=== PATIENT | female | born 1990 | race Caucasian/White ===

== ENCOUNTER → 2016-09-23 | Outpatient (CLI) | payer BC, OTHER ==
[~2016-09-23] MED LIST: META1TAB22 PO; ONDA4TAB7 SL; TAPE50TA PO
[2016-09-23 17:29] LABS: BASO % 0.3 %; BASO ABS # 0.03 K/uL (0-0.2); COMPLETE YES; EOS % 2.2 %; HEMATOCRIT 40.1 % (37-47); IG% 0.2 %; LYMPH % 33.9 %; LYMPH ABS # 3.44 K/uL (1.2-3.4); MEAN CELL VOLUME 85.9 fL (80-100); MEAN CORPUSCULAR HEMOGLOBIN 29.1 pg (25-34); MEAN CORPUSCULAR HGB CONC 33.9 g/dl (32-36); MEAN PLATELET VOLUME 11.3 fL (7.4-10.4); MONO % 5.1 %; NEUT % 58.3 %; PLATELET COUNT 337 K/uL (130-400); RED BLOOD COUNT 4.67 M/uL (4.2-5.4); WHITE BLOOD COUNT 10.15 K/uL (4.8-10.8)
[2016-09-23 17:57] LABS: ALT/SGPT 81 U/L (12-78); AST/SGOT 48 U/L (15-37); BLOOD UREA NITROGEN 9 mg/dl (7-18); CALCIUM 9.9 mg/dl (8.5-10.1); CARBON DIOXIDE 23 mmol/L (21-32); CHLORIDE 107 mmol/L (98-107); CREATININE 0.67 mg/dl (0.60-1.20); GLUCOSE 94 mg/dl (70-99); POTASSIUM 4.4 mmol/L (3.5-5.1); SODIUM 140 mmol/L (136-145)
[2016-09-23 18:07] LABS: ALB/GLOB RATIO 1.2 (0.9-2); ALKALINE PHOSPHATASE 77 U/L (45-117); THYROID STIMULATING HORMONE 0.789 uIu/ml (0.300-4.500)
== END | disposition home or self-care (01) ==
LOC: C.LABBFT 14:14
PROVIDERS: ATTEND Internal Medicine
DX: R60.9 Edema, unspecified (principal); M54.5 Low back pain

== ENCOUNTER → 2017-01-13 | Outpatient (CLI) | payer OTHER ==
[2017-01-13 16:33] LABS: MEAN CELL VOLUME 86.9 fL (80-100); MEAN CORPUSCULAR HEMOGLOBIN 29.4 pg (25-34); MEAN CORPUSCULAR HGB CONC 33.8 g/dl (32-36); MEAN PLATELET VOLUME 10.8 fL (7.4-10.4); PLATELET COUNT 281 K/uL (130-400); RED BLOOD COUNT 4.49 M/uL (4.2-5.4); WHITE BLOOD COUNT 9.69 K/uL (4.8-10.8)
[2017-01-13 17:02] LABS: ALT/SGPT 24 U/L (12-78); AST/SGOT 17 U/L (15-37); BLOOD UREA NITROGEN 9 mg/dl (7-18); BUN/CREATININE RATIO 15.2 (10-20); CARBON DIOXIDE 25 mmol/L (21-32); CHLORIDE 108 mmol/L (98-107); GLUCOSE 121 mg/dl (70-99); POTASSIUM 3.4 mmol/L (3.5-5.1); SODIUM 139 mmol/L (136-145)
[2017-01-13 17:05] LABS: ALB/GLOB RATIO 1.3 (0.9-2); ALKALINE PHOSPHATASE 89 U/L (45-117)
== END | disposition home or self-care (01) ==
LOC: C.LAB 15:19
PROVIDERS: ATTEND Family Medicine
DX: Z33.1 Pregnant state, incidental (principal)

== ENCOUNTER → 2017-02-03 | Outpatient (CLI) | payer OTHER ==
[2017-02-03 12:50] LABS: BASO % 0.4 %; BASO ABS # 0.04 K/uL (0-0.2); COMPLETE YES; EOS % 2.1 %; HEMATOCRIT 39.3 % (37-47); IG% 0.2 %; LYMPH % 43.7 %; LYMPH ABS # 4.75 K/uL (1.2-3.4); MEAN CELL VOLUME 86.9 fL (80-100); MEAN CORPUSCULAR HEMOGLOBIN 28.3 pg (25-34); MEAN CORPUSCULAR HGB CONC 32.6 g/dl (32-36); MEAN PLATELET VOLUME 10.6 fL (7.4-10.4); MONO % 7.1 %; NEUT % 46.5 %; PLATELET COUNT 287 K/uL (130-400); RED BLOOD COUNT 4.52 M/uL (4.2-5.4); WHITE BLOOD COUNT 10.88 K/uL (4.8-10.8)
== END ==
LOC: C.LAB1850 10:31
PROVIDERS: ATTEND Obstetrics & Gynecology
DX: Z34.01 Encounter for supervision of normal first pregnancy, first trimester (principal)

== ENCOUNTER → 2017-02-03 | Outpatient (CLI) | payer OTHER ==
[2017-02-03 14:48] LABS: URINE APPEARANCE CLEAR (CLEAR); URINE BILIRUBIN NEG (NEG); URINE COLOR DK YELLOW; URINE NITRITE NEG (NEG); URINE PH 6.5 (4.5-7.5); URINE SPECIFIC GRAVITY 1.024 (1.000-1.030); UROBILINOGEN NEG (NEG)
[2017-02-03 14:58] LABS: MANUAL MICROSCOPIC REQUIRED? NO; REVIEW REQ? NO
[2017-02-03 15:12] LABS: BENZODIAZEPINE, URINE NEG (NEG); COCAINE,URINE NEG (NEG); PHENCYCLIDINE, URINE NEG (NEG)
[2017-02-06 08:47] LABS: CHLAMYDIA TRACH RNA*** NOT DETECTED (NOT DETECTED); GC (NEIS GONORRHOEAE)RNA** NOT DETECTED (NOT DETECTED)
== END ==
LOC: C.LABSPEC 13:59
PROVIDERS: ATTEND Obstetrics & Gynecology
DX: Z34.01 Encounter for supervision of normal first pregnancy, first trimester (principal); O99.321 Drug use complicating pregnancy, first trimester; Z3A.00 Weeks of gestation of pregnancy not specified

== ENCOUNTER → 2017-04-07 | Outpatient (CLI) | payer OTHER ==
[2017-04-07 13:54] LABS: GTGD 50 Grams
== END | disposition home or self-care (01) ==
LOC: C.LAB1850 11:42
PROVIDERS: ATTEND Obstetrics & Gynecology
DX: Z34.01 Encounter for supervision of normal first pregnancy, first trimester (principal)

== ENCOUNTER → 2017-06-03 | Outpatient (CLI) | payer OTHER | END | disposition home or self-care (01) | LOC: C.CPL 14:47 | PROVIDERS: ATTEND Obstetrics & Gynecology | DX: Z36.2 Encounter for other antenatal screening follow-up (principal) ==

== ENCOUNTER → 2017-06-30 | Outpatient (CLI) | payer OTHER ==
[2017-06-30 22:39] LABS: GTGD 50 Grams
== END | disposition home or self-care (01) ==
LOC: C.LAB1850 16:22
PROVIDERS: ATTEND Obstetrics & Gynecology
DX: Z34.03 Encounter for supervision of normal first pregnancy, third trimester (principal)

== ENCOUNTER 2017-08-12 13:36 | Emergency (ER) | payer OTHER ==
[2017-08-12] MEDS ORDERED: METH500T37 PO ×2 (15:02)
[2017-08-12] MEDS ORDERED: GABA1CAP5 PO ×2 (15:02)
[2017-08-12] MEDS ORDERED: BUPR1SUB23 PO ×2 (15:02)
[2017-08-12] MEDS ORDERED: QUET150T PO ×2 (15:02)
== END 2017-08-12 14:19 | disposition home or self-care (01) ==
LOC: C.EDB 13:39

== ENCOUNTER 2017-08-12 13:52 | Inpatient (IN) | payer OTHER ==
[~2017-08-12] VITALS: Ht 167.6 cm; Wt 81.7 kg
[2017-08-12] MEDS ORDERED: LACTATED RINGER'S 1000ML 500 ML IV ONE (14:30)
[2017-08-12] MEDS ORDERED: PROMETHAZINE HCL INJ 25 MG in SODIUM CHLORIDE 0.9% 50ML 50 ML IV PRN (14:30)
[2017-08-12] MEDS ORDERED: PROMETHAZINE HCL INJ 12.5 MG in SODIUM CHLORIDE 0.9% 50ML 50 ML IV PRN (14:30)
[2017-08-12] MEDS ORDERED: LACTATED RINGER'S 1000ML 1,000 ML IV SCH ×2 (14:45→17:01)
[2017-08-12] MEDS ORDERED: METH500T37 PO ×2 (15:02)
[2017-08-12] MEDS ORDERED: QUET150T PO ×2 (15:02)
[2017-08-12] MEDS ORDERED: GABA1CAP5 PO ×2 (15:02)
[2017-08-12] MEDS ORDERED: BUPR1SUB23 PO ×2 (15:02)
[2017-08-12 15:03] VITALS: Ht 167.6 cm; Wt 81.7 kg
[2017-08-12] MEDS ORDERED: TERBUTALINE SULFATE 1 MG/ML VIAL SQ ONE (15:30)
[2017-08-12] MEDS ORDERED: LACTATED RINGER'S 1000ML 1,000 ML IV PRN (17:01)
[2017-08-12] MEDS ORDERED: CITRIC ACID/SODIUM CITRATE 15 ML UDC PO ONE (17:15)
[2017-08-12] MEDS ORDERED: MORPHINE SULFATE PF 2MG/2ML SYR ONE (17:29)
[2017-08-12] MEDS ORDERED: CEFAZOLIN IV 2,000 MG in DEXTROSE 5% 50ML 50 ML IV SCH (17:30)
[2017-08-12] MEDS ORDERED: LIDOCAINE HCL 2% JELLY 30 ML TUBE EXT ONE (17:42)
[2017-08-12 17:55] LABS: HEMATOCRIT 33.2 % (37-47); MEAN CELL VOLUME 88.1 fL (80-100); MEAN CORPUSCULAR HEMOGLOBIN 28.4 pg (25-34); MEAN CORPUSCULAR HGB CONC 32.2 g/dl (32-36); MEAN PLATELET VOLUME 10.6 fL (7.4-10.4); PLATELET COUNT 322 K/uL (130-400); RED BLOOD COUNT 3.77 M/uL (4.2-5.4); WHITE BLOOD COUNT 17.71 K/uL (4.8-10.8)
--- NOTE | 2017-08-12 18:34 | HISTORY & PHYSICAL EXAMINATION ---
DATE OF ADMISSION: 08/12/2017 PRINCIPAL DIAGNOSES: Intrauterine at 34 and 4/7 weeks, prolonged deceleration, history of prior drug abuse and suspected placental abruption. PROCEDURE: Primary low transverse cervical section. HISTORY OF PRESENT ILLNESS: The patient is a 26-year-old G1, P0 white female, EDC of 09/19/2017 who had presented to labor and delivery with increasing lower abdominal and back pain. The pain is described as shooting, it is across her entire lower back and does radiate around to the front of her abdomen. She has also been vomiting for the last 12 hours. She denies any vaginal bleeding, change in discharge. The baby has been moving. She has had no diarrhea, only the vomiting and lack of appetite. She typically takes Seroquel and gabapentin but she has not taken that for 2 days because she has not felt well. She denies any fever or chills. On exam, she has lower back pain that is diffuse. No CVA tenderness. Palpation of the abdomen does not reproduce the pain. There is no hepatosplenomegaly or masses palpable. She does have a wide keloid scar midline on her abdomen of her prior appendectomy. Pelvic exam, cervix was closed and long and presenting part is high. During the evaluation for this abdominal pain, the had a 18 minute deceleration to 80-90 beats per minute with slow recovery to baseline. The patient continues to complain of continuous lower back pain. She does deny any recent use of cocaine or other illicit drugs. Urine drug screen will be pending. Because of the prolonged deceleration, it was not felt prudent to transfer her for delivery and because of the deceleration it was felt prudent to proceed with low transverse cervical section. The patient understands why we are doing this and her questions have been answered. PAST MEDICAL HISTORY: Significant for history of IV drug use. The patient denies any recent heroin and cocaine use during that ; however, she has been using marijuana for control of nausea. Otherwise, the patient has no other medical issues. ALLERGIES: OXYCODONE BECAUSE IT CAUSES A RASH. MEDICATIONS: Gabapentin 400 mg p.o. t.i.d., Seroquel 150 mg p.o. daily, vitamin, Suboxone 8 mg daily divided into 4 doses of 2 mg each. OBSTETRICAL AND GYNECOLOGICAL HISTORY: Periods are regular. No history of PID, VD or herpes. Pap smears have been normal. PAST SURGICAL HISTORY: Appendectomy at age 9 with a ruptured appendix, requiring surgery and a week stay in the hospital. She had a wisdom teeth removed, right hand surgery x3 and a left knee surgery. HISTORY: Blood type is A positive. Antibody screen is negative. Rubella is immune. RPR is nonreactive. Hepatitis is negative. Hepatitis B is negative. HIV is negative. GC and chlamydia are negative. Cystic fibrosis was declined. Hemoglobin at 28 weeks is 10.9, hematocrit 33. GBS has not been done yet, however, will be done prior to the section. SOCIAL HISTORY: She does smoke approximately a pack a day, does not do alcohol, has admitted to marijuana use during the for nausea. Denies any recent IV drug or cocaine use during the . PHYSICAL EXAMINATION: VITAL SIGNS: She is afebrile. Vital signs are stable. LUNGS: Clear to auscultation. HEART: Regular rate and rhythm. No murmurs or gallops. ABDOMEN: Gravid, no hepatosplenomegaly or masses are palpable. She has a well-healed keloid scar on her lower abdomen. PELVIC: Noted as in the HPI. vertex presentation by ultrasound EXTREMITIES: Without cyanosis or edema. She has multiple scarring on both of her arms and on her feet. No calf tenderness is present. ASSESSMENT: A 26-year-old G1, P0 at 34 and 4 weeks with prolonged deceleration with slow recovery, history of IV drug abuse in the past, now with severe lower back pain with placental abruption is suspected. The patient understands that the baby will be transferred to [facility] upon delivery. Reviewed the procedure and her questions have been answered as well as the family's questions have been answered. Please see the orders for further directions. MELISSA
[2017-08-12 19:51] LABS: URINE APPEARANCE CLEAR (CLEAR); URINE COLOR DK YELLOW; URINE EPITHELIAL CELL AUTO >30 /lpf (0-5); URINE NITRITE NEG (NEG); URINE SPECIFIC GRAVITY 1.021 (1.000-1.030); UROBILINOGEN NEG (NEG)
[2017-08-12 20:01] LABS: MANUAL MICROSCOPIC REQUIRED? NO; REVIEW REQ? YES; URINE BILIRUBIN NEG (NEG)
[2017-08-12 20:03] LABS: URINE MUCUS PRESENT (NONE PRSENT)
[2017-08-12] MEDS ORDERED: HYDROmorphone INJ 2 MG/ML SYR/VIAL ONE ×2 (20:03→20:35)
[2017-08-12 20:05] LABS: ZZUR CULT IF INDIC CLEAN CATCH YES
[2017-08-12] MEDS ORDERED: OXYTOCIN INJ 10 UNITS/ML VIAL ONE (20:24)
[2017-08-12] MEDS ORDERED: PHENYLEPHRINE 100MCG/ML 5ML SYR ONE (20:25)
[2017-08-12] MEDS ORDERED: ATROPINE SULFATE 0.1 MG/ML 5ML SYR IV PRN (20:30)
[2017-08-12] MEDS ORDERED: KETOROLAC TROMETHAMINE 30 MG/ML VIAL IV. PRN (20:30)
[2017-08-12] MEDS ORDERED: FENTANYL CITRATE INJ 50 MCG/1 ML 2 ML VIAL IV PRN (20:30)
[2017-08-12] MEDS ORDERED: ONDANSETRON INJ 2 MG/ML 2 ML VIAL IV PRN (20:30)
[2017-08-12] MEDS ORDERED: DEXAMETHASONE SOD INJ 4 MG/ML VIAL IV PRN (20:30)
[2017-08-12] MEDS ORDERED: LABETALOL HCL IV 5 MG/ML 20ML IV PRN (20:30)
[2017-08-12] MEDS ORDERED: EpHEDrine SULFATE INJ 50 MG/ML AMP IV PRN (20:30)
[2017-08-12] MEDS ORDERED: MoRPHine SULFATE 10 MG/ML CARP/VIAL IV PRN (20:30)
[2017-08-12] MEDS ORDERED: MEPERIDINE HCL 25 MG/ML CARP IV PRN (20:30)
[2017-08-12] MEDS ORDERED: FENTANYL CITRATE INJ 50 MCG/1 ML 2 ML VIAL ONE (20:35)
[2017-08-12 20:37] LABS: BENZODIAZEPINE, URINE NEG (NEG); COCAINE,URINE NEG (NEG); PHENCYCLIDINE, URINE NEG (NEG)
[2017-08-12] MEDS ORDERED: DC PCA PRN (20:45)
[2017-08-12] MEDS ORDERED: MAGNESIUM HYDROXIDE SUSP 30 ML UDC PO PRN (20:45)
[2017-08-12] MEDS ORDERED: SENNA 8.6 MG TAB PO PRN (20:45)
[2017-08-12] MEDS: HYDROmorphone INJ 1 MG/ML SYR IV PRN ×2 (21:28→23:53)
[2017-08-12] MEDS ORDERED: ACETAMINOPHEN IV 100 ML IV PRN (21:45)
--- NOTE | 2017-08-12 22:24 | OPERATIVE REPORT ---
DATE OF OPERATION: 08/12/2017 SURGEON: Dr. Alissa Carrasco. STAMPING OPERATOR: Dr. Rama Alvares. PREOPERATIVE DIAGNOSIS: Nonreassuring heart rate pattern at 34-4/7 weeks with unfavorable cervix. POSTOPERATIVE DIAGNOSES: Same plus suspected placental abruption. PROCEDURE: Primary low transverse cervical section. ESTIMATED BLOOD LOSS: 600 mL ANESTHESIA: Spinal. HISTORY: The patient is a 26-year-old 1, para 0 white female, EDC of 09/19/2017, who had presented because of persistent low back pain which began the day prior to admission with nausea and vomiting. The back pain became progressively worse and was radiating around to the low groin areas. During her monitoring, there was an 18-minute deceleration to 80 beats per minute with a short rise to baseline and then dropped again to 80s and 90s for another several minutes. After repositioning and subcu terbutaline because the patient was having contractions, the heart rate then stabilized. The patient then stopped pasha. She was difficult to get IV access because of dehydration and prior IV drug use. heart rate remained reassuring at this point with only occasional short decelerations to 90 beats per minute. Because of the persistent back pain, contractions and nonreassuring heart rate pattern, placental abruption was suspected. After discussion with the patient and her family, it was felt prudent to proceed with low transverse cervical section and they were agreeable to this plan. All their questions were answered. GROSS FINDINGS: Uterus was gravid and dextrorotated. There was significant venous dilation in the lower uterine segment which was not well developed. Bilateral ovaries and fallopian tubes were grossly normal. Placenta appeared to be almost completely abrupt at the time of the section. PROCEDURE IN DETAIL: After the patient received adequate subarachnoid block, she was prepped and draped in the usual sterile fashion. She had a prior scar from an appendectomy and it was midline. The scar was removed and the fascia was entered with a scalpel. The peritoneum was then entered with a scalpel and the incision was extended with the scalpel and Metzenbaum scissors. The bladder was then taken down off the anterior surface of the uterus and placed behind the bladder blade. The low uterine segment was entered with the scalpel and extended transversally. The infant was delivered from the vertex presentation with moderate fundal pressure and vacuum assistance as the was also trying to present with a hand. After the vacuum was applied and gentle pressure, tension was applied and the was delivered. There was a loose nuchal cord as well as an arm cord. The rest of the infant delivered easily. Cord was then clamped and cut. Cord gases were obtained and the was handed off to Dr. Holm who was in attendance as air brake worker. The placenta was then removed from the uterus, already detached. The uterine cavity was explored and found to be free of any placental tissue or membranes. The uterus was then exteriorized and covered with a clean lap sponge. The uterus was closed in 2 layers with 0 Monocryl in a running locking imbricating fashion. Hemostasis was noted to be excellent. The posterior cul-de-sac was irrigated with normal saline. The incision was examined once more and continued to have excellent hemostasis. The gutters were explored and were free of any clot or tissue. Anterior cul-de-sac was also irrigated with normal saline. The uterus was placed gently back into the abdominal cavity. A Fish was used to retract the bowel away from the fascial incision as it was being closed. 0 PDS was used to close the vertical incision in a running fashion, taking care not to incorporate the bowel into the incision. Prior to closing the incision completely, the posterior side of the fascia was explored and found to have no bowel entrapped. The adipose layer was brought together with 2 layers of 3-0 plain catgut. The skin edges were closed with faith. Urine was clear at the end of the case but concentrated. Mother was stable at the end of delivery. The was being further evaluated at the time of the section. I attest to the content of the Intraoperative Record and any orders documented therein. Any exception s are noted below.
[2017-08-12] MEDS: GABAPENTIN 400 MG CAP PO SCH (23:27)
[2017-08-12] MEDS: QUETIAPINE FUMARATE 50 MG TABCR PO SCH (23:28)
[2017-08-13] VITALS (19 sets, daily range): BP systolic 98–115; BP diastolic 53–68; PULSE 18–79; TEMP 36.7–37.5; O2SAT 91–96
[2017-08-13] MEDS ORDERED: BUPRENORPHINE/NALOXONE 8/2 MG TAB PO SCH ×2 (00:15→08:00)
--- NOTE | 2017-08-13 00:53 | Anesthesiology Progress Note ---
Anesthesia Post Op Note Date & Time Aug 13, 2017 at 00:53 Vital Signs Pain Intensity: 10.0 Notes Mental Status: alert / awake / arousable, participated in evaluation Pt Amnestic to Procedure: Yes Nausea / Vomiting: adequately controlled Pain: adequately controlled Airway Patency, RR, SpO2: stable & adequate BP & HR: stable & adequate Hydration State: stable & adequate Neuraxial Anesthesia: was administered, sensory block is resolving Anesthetic Complications: no major complications apparent
--- NOTE | 2017-08-13 01:03 | [facility] Operative Report ---
Operative Report Operative Date Aug 13, 2017. Pre-Operative Diagnosis non Reassuring FHR Pattern, 34 4/7 weeks gestation, unfavoriable cervix Post-Operative Diagnosis non Reassuring FHR Pattern, 34 4/7 weeks gestation, unfavoriable cervix Procedure(s) Performed Primary low transverse c/section Surgeon DR. [facility] Nurse Surgeon(s) DR. MAN Estimated Blood Loss 600 ML Findings gravid uterus normal ovaries & tubes. the placenta noted to be partially abrupted after delivery of the baby. Specimens A: LIVE MALE CHILD B: ARTERIAL AND VENOUS BLOOD GASES C: CORD BLOOD D:PLACENTA Drains Meier to straight drainage Anesthesia SAB Complication(s) None Disposition L&D I attest to the content of the Intraoperative Record and any orders documented therein. Any exceptions are noted below.
[2017-08-13] MEDS ORDERED: NALOXONE HCL INJ 1 MG in SODIUM CHLORIDE 0.9% 1000ML 1,000 ML IV PRN (02:10)
[2017-08-13] MEDS ORDERED: LACTATED RINGER'S 1000ML 500 ML IV PRN (02:10)
[2017-08-13] MEDS ORDERED: SODIUM CHLORIDE 0.9% 1000ML 1,000 ML IV PRN (02:10)
[2017-08-13] MEDS ORDERED: NALOXONE HCL INJ 0.08 MG in SYRINGE 1.8 ML IV PRN (02:10)
[2017-08-13] MEDS ORDERED: NALBUPHINE HCL INJ 10 MG/ML AMP IV PRN (02:15)
[2017-08-13] MEDS ORDERED: DiphenhydrAMINE HCL 50 MG/ML VIAL IV PRN ×3 (02:15→13:30)
[2017-08-13] MEDS ORDERED: ONDANSETRON INJ 2 MG/ML 2 ML VIAL IV PRN ×2 (02:15→13:30)
[2017-08-13] MEDS ORDERED: PROMETHAZINE HCL INJ 25 MG in SODIUM CHLORIDE 0.9% 50ML 50 ML IV PRN ×2 (02:15→13:30)
[2017-08-13] MEDS ORDERED: MoRPHine SULFATE PF 1 MG/ML 10 ML AMP/VIAL EPI PRN (02:15)
[2017-08-13] MEDS ORDERED: EpHEDrine SULFATE INJ 50 MG/ML AMP IV PRN (02:15)
[2017-08-13] MEDS ORDERED: MoRPHine SULFATE 2 MG/ML CARP IV PRN (02:15)
[2017-08-13] MEDS ORDERED: NALOXONE HCL 0.4 MG/1 ML VIAL/CARP IV PRN (02:15)
[2017-08-13] MEDS ORDERED: NO NARCOTICS OR SEDATIVES SCH (02:15)
[2017-08-13] MEDS ORDERED: METOCLOPRAMIDE HCL INJ 20 MG in SODIUM CHLORIDE 0.9% 50ML 50 ML IV PRN (02:15)
[2017-08-13] MEDS: KETOROLAC TROMETHAMINE 30 MG/ML VIAL IV. PRN ×2 (04:48→12:34)
[2017-08-13 06:11] LABS: HEMATOCRIT 25.3 % (37-47)
[2017-08-13] MEDS: OXYTOCIN INJ 20 UNITS in LACTATED RINGER'S 1000ML 1,000 ML IV SCH ×2 (06:33→14:31)
--- NOTE | 2017-08-13 07:19 | Progress Note ---
Subjective Aug 13, 2017. Subjective conversation w/ patient, physical exam Ambulation: ambulating normally Voiding: gomez catheter in place Passing Gas: Yes Diet Tolerance: Clear Liquids Lochia: Small Feeding Type: Bottle Feeding Comment: back pain better, pain meds working. Review of Systems Constitutional: No fever, No chills, No sweats, No weight loss, No weakness, No fatigue, No problem reported Breast: No see HPI, No breast lump, No change in shape, No nipple discharge, No breast pain, No problem reported Abdomen: No pain, No nausea, No vomiting, No diarrhea, No constipation, No GI bleeding, No problem reported Female : No see HPI, No dysuria, No urinary frequency, No hematuria, No incontinence, No abnormal vaginal bleeding, No vaginal discharge, No problem reported Objective Vital Signs Date Time Temp Pulse Resp B/P (MAP) Pulse Ox O2 Delivery O2 Flow Rate FiO2 08/13/17 06:22 16 92 08/13/17 05:30 16 93 08/13/17 04:30 16 96 08/13/17 04:30 37.5 67 16 101/62 (75) 96 Room Air 08/13/17 03:30 16 93 08/13/17 02:30 16 91 08/13/17 02:30 37.3 69 16 115/67 08/13/17 01:58 95 Room Air 08/13/17 01:30 37.1 74 16 113/53 (73) 92 Room Air 08/13/17 01:30 16 92 08/13/17 00:35 18 95 08/13/17 00:35 95 Room Air 08/13/17 00:35 37.4 67 18 113/64 Physical Exam General Appearance: WELL-APPEARING, NO APPARENT DISTRESS Abdomen: soft Fundus: Firm, Non-Tender, Relation to Umbilicus (1 below U) Incision Description: Clean, Dry & Intact Extremities: no calf tenderness Laboratory Results Last 24 Hours Test 08/12/17 17:38 08/12/17 19:30 08/13/17 05:53 White Blood Count 17.71 K/uL Red Blood Count 3.77 M/uL Hemoglobin 10.7 g/dL 8.4 g/dL Hematocrit 33.2 % 25.3 % Mean Corpuscular Volume 88.1 fL Mean Corpuscular Hemoglobin 28.4 pg Mean Corpuscular Hemoglobin Concent 32.2 g/dl RDW Standard Deviation 43.7 fL RDW Coefficient of Variation 13.6 % Platelet Count 322 K/uL Mean Platelet Volume 10.6 fL Urine Color DK YELLOW Urine Appearance CLEAR Urine pH 6.0 Urine Specific [place] 1.021 Urine Protein TRACE Urine Glucose (UA) NEG Urine Ketones 4+ Urine Occult Blood NEG Urine Nitrite NEG Urine Bilirubin NEG Urine Urobilinogen NEG Urine Leukocyte Esterase TRACE Urine WBC (Auto) 1-5 /hpf Urine RBC (Auto) 0-4 /hpf Urine Hyaline Casts (Auto) 0 /lpf Urine Epithelial Cells (Auto) >30 /lpf Urine Bacteria (Auto) 1+ Urine Renal Epithelial Cells /lpf Urine Pathogenic Casts /lpf Urine Mucus PRESENT Urine Opiates Screen NEG Urine Methadone, Qualitative NEG Urine Barbiturates NEG Urine Phencyclidine (PCP) Level NEG Ur Amphetamine/Methamphetamine NEG MDMA (Ecstasy) Screen NEG Urine Benzodiazepines Screen NEG Urine Cocaine Metabolite NEG Urine Marijuana (THC) POS Assessment and Plan Day#: 1 Continue Routine Care: stable course pain well controlled with current regimen continue current care plan.
[2017-08-13] MEDS ORDERED: QUETIAPINE FUMARATE 50 MG TABCR PO SCH (08:00)
[2017-08-13] MEDS ORDERED: GABAPENTIN 400 MG CAP PO SCH (08:00)
[2017-08-13] MEDS: SIMETHICONE 80 MG CHEW PO SCH ×4 (08:00→20:55)
[2017-08-13] MEDS: BUPRENORPHINE/NALOXONE 8/2 MG TAB PO SCH ×2 (08:07→20:53)
[2017-08-13] MEDS: QUETIAPINE FUMARATE 50 MG TABCR PO SCH (08:07)
[2017-08-13] MEDS: PRENATAL VITAMIN TAB PO SCH (08:08)
[2017-08-13] MEDS: FERROUS SULFATE 325 MG TAB PO SCH (08:08)
[2017-08-13] MEDS: GABAPENTIN 400 MG CAP PO SCH ×3 (08:10→20:54)
[2017-08-13] MEDS: DOCUSATE SODIUM 100 MG CAP PO SCH ×2 (08:11→20:54)
[2017-08-13] MEDS: MEPERIDINE HCL 25 MG/ML CARP IV PRN ×2 (08:20→08:40)
[2017-08-13] MEDS ORDERED: DC INTRASPINAL MORPHINE SCH (13:30)
[2017-08-13] MEDS ORDERED: MEPERIDINE HCL 50 MG/ML CARP IV PRN ×2 (13:30)
[2017-08-13] MEDS ORDERED: KETOROLAC TROMETHAMINE 30 MG/ML VIAL IV. PRN (13:30)
[2017-08-13] MEDS: ACETAMINOPHEN/CODEINE 300/30MG TAB PO PRN ×2 (16:04→20:53)
[2017-08-13] MEDS: IBUPROFEN 600 MG TAB PO PRN ×2 (16:04→20:54)
[2017-08-13] MEDS ORDERED: BISACODYL 5 MG TABEC PO ONE (22:00)
[2017-08-14] MEDS: IBUPROFEN 600 MG TAB PO PRN ×3 (00:14→11:46)
[2017-08-14] MEDS: ACETAMINOPHEN/CODEINE 300/30MG TAB PO PRN ×3 (00:15→11:47)
[2017-08-14 00:20] VITALS: BP 124/80; PULSE 67; TEMP 37; O2SAT 96
[2017-08-14 07:10] VITALS: BP_SYST 103; BP_SYST 122; BP_DIAS 64; BP_DIAS 78; PULSE 69; PULSE 87; TEMP 36.4; TEMP 37; O2SAT 97; O2SAT 98
[2017-08-14 07:15] LABS: BASO % 0.5 %; BASO ABS # 0.05 K/uL (0-0.2); EOS % 2.9 %; HEMATOCRIT 26.6 % (37-47); IG% 0.3 %; LYMPH % 37.3 %; LYMPH ABS # 3.57 K/uL (1.2-3.4); MEAN CORPUSCULAR HEMOGLOBIN 28.4 pg (25-34); MEAN PLATELET VOLUME 10.1 fL (7.4-10.4); PLATELET COUNT 233 K/uL (130-400); RED BLOOD COUNT 2.99 M/uL (4.2-5.4); WHITE BLOOD COUNT 9.57 K/uL (4.8-10.8)
--- NOTE | 2017-08-14 07:18 | Progress Note ---
Subjective Aug 14, 2017. Subjective conversation w/ patient, physical exam Ambulation: ambulating normally Voiding: no voiding problems Passing Gas: Yes Diet Tolerance: Regular Diet Feeding Type: Bottle Feeding Review of Systems Constitutional: No fever, No chills Respiratory: No cough Cardiac: No chest pain Breast: No problem reported Abdomen: No nausea, No vomiting Female : No problem reported Objective Vital Signs Date Time Temp Pulse Resp B/P (MAP) Pulse Ox O2 Delivery O2 Flow Rate FiO2 08/14/17 00:20 37.0 67 18 124/80 08/14/17 00:20 96 Room Air 08/13/17 20:45 36.7 74 16 110/68 08/13/17 20:45 Room Air 08/13/17 16:15 36.9 78 16 108/66 08/13/17 16:15 Room Air 08/13/17 13:00 20 94 08/13/17 12:00 20 92 08/13/17 11:59 37.1 79 16 109/65 08/13/17 11:00 16 92 08/13/17 10:00 18 94 08/13/17 09:00 16 94 08/13/17 08:00 20 94 08/13/17 07:25 37.1 60 16 98/55 (69) 95 Room Air Physical Exam General Appearance: WELL-APPEARING, NO APPARENT DISTRESS Respiratory/Chest: no respiratory distress, no accessory muscle use Cardiovascular: no edema Abdomen: non tender, soft Fundus: Firm Extremities: no calf tenderness Laboratory Results Last 24 Hours Test 08/14/17 06:53 White Blood Count 9.57 K/uL Red Blood Count 2.99 M/uL Hemoglobin 8.5 g/dL Hematocrit 26.6 % Mean Corpuscular Volume 89.0 fL Mean Corpuscular Hemoglobin 28.4 pg Mean Corpuscular Hemoglobin Concent 32.0 g/dl Platelet Count 233 K/uL Mean Platelet Volume 10.1 fL Neutrophils (%) (Auto) 48.0 % Lymphocytes (%) (Auto) 37.3 % Monocytes (%) (Auto) 11.0 % Eosinophils (%) (Auto) 2.9 % Basophils (%) (Auto) 0.5 % Neutrophils # (Auto) 4.59 K/uL Lymphocytes # (Auto) 3.57 K/uL Monocytes # (Auto) 1.05 K/uL Eosinophils # (Auto) 0.28 K/uL Basophils # (Auto) 0.05 K/uL RDW Standard Deviation 45.6 fL RDW Coefficient of Variation 14.1 % Immature Granulocyte % (Auto) 0.3 % Immature Granulocyte # (Auto) 0.03 K/uL Assessment and Plan Post-Op Day#: 2 Continue Routine Care: Desires D/C. Mom ok from medical standpoint. Peds made aware, CYS pending.
--- NOTE | 2017-08-14 07:20 | Discharge Instructions ---
Discharge Instructions Date of Service Aug 14, 2017. Admission Reason for Admission: Vomiting, Back Pain Discharge Discharge Diagnosis / Problem: vaginal delivery Discharge Goals Goal(s): Routine recovery after delivery Activity Recommendations Activity Limitations: per Instructions/Follow-up section . Instructions / Follow-Up Instructions / Follow-Up ACTIVITY RECOMMENDATIONS: * Gradual return to full activity over the next 2-3 weeks. * No lifting - nothing heavier than baby over the next 2-3 weeks. * Do not engage in vigorous exercise, sexual activity or sports until cleared by your physician. * Do not drive or operate any motorized equipment until cleared by your physician. * You may shower/bathe daily. MEDICATIONS: For discomfort or pain, you may use Acetaminophen (Tylenol), Ibuprofen (Advil), or Naproxen (Aleve) following the package directions. For constipation you may use Colace following the package directions. BREAST CARE: If you are not breast feeding: * Wear a supportive bra 24 hours a day for one to two weeks. * Avoid stimulating your breasts and nipples as much as possible during the first few weeks after delivery. * When taking a shower, have the warm water hit your back, not breasts. * When your breasts feel full, apply ice packs. Usually three to four times a day helps ease the discomfort. * Take a mild pain medication (Tylenol / Motrin) when you are uncomfortable. If breast feeding: * Use breast milk to lubricate nipples. Lansinoh cream may be used for sore nipples. You do not need to remove cream prior to breast feeding. If using a different brand of cream, check the label for directions regarding removal of cream prior to nursing. * Wear a supportive bra. * If having problems with breasts or breast feeding, call a review consultant or your health care provider. EPISIOTOMY CARE: After delivery, if you have an episiotomy (stitches), the following steps will ease discomfort and aid healing. * For the first 24 hours after delivery, place ice packs next to your episiotomy to help reduce swelling. * After the first 24 hour-period, sitz baths, either portable or in the tub, are suggested. A shower with a shower arm sprayed over the episiotomy may be comforting. * Pat care should be done after each voiding and bowel movement. Squirt warm water from a plastic bottle over the perineum (region of the body between the anus and urinary opening) and pat dry. * Use Dermoplast to ease discomfort. Shake container. [place] directly over the episiotomy. Place a Tucks on a clean sanitary pad next to your episiotomy. SPECIAL CARE INSTRUCTIONS: When you are discharged from the hospital, it is important for you to follow the instructions listed below: * During the first week at home, you should be able to care for yourself and your baby. In addition, the usual light household activities are encouraged. * Limit your activities to the way you feel. Do not try to clean the house or move furniture. Be sensible. * If you actively engage in sports and have done so up until the time of your delivery, you may resume these activities as soon as you feel able. This may take up to one month or even longer. Use good judgment. * Continue to take your vitamins for at least six weeks after the of your baby. * Your diet need not be limited unless you were on a special diet before your delivery. Breast-feeding mothers need around 2500 calories per day and at least 64-80 ounces of fluid per day (8 to 10 glasses). * You should eat foods from the four major food groups. Crash diets or fad diets are to be avoided. Eating lean meats, fresh fruits and vegetables, low-fat dairy products, high fiber foods and a regular exercise program, will help you get back to your pre- weight without putting your health at risk. * Constipation is sometimes a problem after delivery. Take a mild laxative as needed. If breast feeding, Milk of Magnesia is acceptable to use. You may use a suppository or Fleets enema if no episiotomy. * A daily shower or tub bath is suggested. Be sure to thoroughly and gently dry the perineum. * A bloody vaginal discharge will usually continue until around four weeks post . A small amount of bleeding may continue for as long as six weeks. Vaginal discharge changes from the bright red bleeding after delivery to pink then brownish and finally yellowish-pink before becoming white and disappearing. * Bleeding may increase with activity. Your first period may come in 4-8 weeks. If you are breast feeding, your period may be delayed even longer. * Blue (sex) can begin whenever both you and your partner feel comfortable and do not have any form of genital infection. It is recommended that you wait at least six weeks for internal and external healing to occur. If you have questions, please talk to your health care practitioner. A condom should be used to prevent infection and . * Foreplay, gentle intercourse and lubrication is very important the first several times to prevent pain. A water-based lubricant such as K-Y jelly or Astroglide may be used. * If you have RH negative blood and your baby is RH positive, you will receive RHOGAM by injection prior to discharge. The nurse will give you a card to keep with you that has the date and place that you received RHOGAM after delivery. * During your care, you had a Rubella screen done to check for the presence of rubella antibodies in your blood. If your test was negative, you will receive a Rubella vaccine prior to discharge. This vaccine may cause a fever, soreness at the injection site and flu-like symptoms. If these symptoms persist, notify your health care practitioner. is not advised for one month after a Rubella vaccine. * Verbalizes understanding of car seat law as reviewed with patient nursing. * Car Seat hand-out given and reviewed with patient by nursing. * Shaken baby information reviewed with patient by nursing. Call you doctor if: * Heavy bleeding (saturating several pads an hour) or passing clots the size of your fist. * A fever >101 degrees F (38.3 degrees C) on two occasions four hours apart and /or chills. * Unusual pain in the pelvic or vaginal areas. * "Baby Blues" lasting longer than two weeks. If you have any questions or concerns, call your health care practitioner at . FOLLOW UP VISIT: * Please call the office at to schedule a 6 week examination. It is important you keep this appointment. It is important for you to make arrangements for either yearly or twice yearly check-ups thereafter. Current Hospital Diet Patient's current hospital diet: Regular OB Diet Discharge Diet Recommended Diet: Regular Diet Procedures Procedures Performed: Primary low transverse c/section Pending Studies Studies pending at discharge: no Medical Emergencies . Who to Call and When: Medical Emergencies: If at any time you feel your situation is an emergency, please call 911 immediately. . Non-Emergent Contact Non-Emergency issues call your: Primary Care Provider . . "Provider Documentation" section prepared by Rama Alvares. . VTE Core Measure Inpt VTE Proph given/why not?: Treatment not indicated
[2017-08-14] MEDS ORDERED: NICOTINE 21 MG/24 HR TDSY TD SCH (08:00)
[2017-08-14 08:06] LABS: COMPLETE YES
[2017-08-14] MEDS: DOCUSATE SODIUM 100 MG CAP PO SCH (08:13)
[2017-08-14] MEDS: SIMETHICONE 80 MG CHEW PO SCH ×2 (08:13→11:45)
[2017-08-14] MEDS: FERROUS SULFATE 325 MG TAB PO SCH (08:13)
[2017-08-14] MEDS: BUPRENORPHINE/NALOXONE 8/2 MG TAB PO SCH (08:13)
[2017-08-14] MEDS: GABAPENTIN 400 MG CAP PO SCH (08:14)
[2017-08-14] MEDS: QUETIAPINE FUMARATE 50 MG TABCR PO SCH (08:14)
[2017-08-14] MEDS: PRENATAL VITAMIN TAB PO SCH (08:14)
[2017-08-14 11:30] VITALS: BP_DIAS 78; PULSE 69; TEMP 37
== END 2017-08-14 12:20 | disposition home or self-care (01) | DRG 765 ==
LOC: C.LD 13:52 → C.OPB 13:52 → C.LD 19:30 → C.OPB 19:30 → C.OBG 08-13 01:08
PROVIDERS: ADMIT Obstetrics & Gynecology; ATTEND Obstetrics & Gynecology
PROC: 10D00Z1 Extraction of Products of Conception, Low, Open Approach (ICD-10-PCS; principal; 2017-08-12 19:04)
DX: O45.93 Premature separation of placenta, unspecified, third trimester (principal); O99.324 Drug use complicating childbirth; F12.90 Cannabis use, unspecified, uncomplicated; F19.21 Other psychoactive substance dependence, in remission; O76 Abnormality in fetal heart rate and rhythm complicating labor and delivery; O69.81X0 Labor and delivery complicated by cord around neck, without compression, not applicable or unspecified; O99.334 Smoking (tobacco) complicating childbirth; F17.200 Nicotine dependence, unspecified, uncomplicated; Z3A.34 34 weeks gestation of pregnancy; Z37.0 Single live birth

== ENCOUNTER → 2017-08-21 | Outpatient (CLI) | payer OTHER ==
[~2017-08-21] MED LIST changes: +BUPR1SUB23 PO; +GABA1CAP5 PO; -META1TAB22 PO; +METH500T37 PO; -ONDA4TAB7 SL; +QUET150T PO; -TAPE50TA PO
[2017-08-21 16:18] LABS: BENZODIAZEPINE, URINE NEG (NEG); COCAINE,URINE NEG (NEG); PHENCYCLIDINE, URINE NEG (NEG)
== END | disposition home or self-care (01) ==
LOC: C.LABSPEC 15:34
PROVIDERS: ATTEND Obstetrics & Gynecology
DX: F19.90 Other psychoactive substance use, unspecified, uncomplicated (principal)

== ENCOUNTER → 2017-10-10 | Outpatient (CLI) | payer OTHER ==
[~2017-10-10] MED LIST changes: +GABA-1220 PO; -GABA1CAP5 PO
== END | disposition home or self-care (01) ==
LOC: C.PAPS 10:43
PROVIDERS: ATTEND Obstetrics & Gynecology
DX: Z12.4 Encounter for screening for malignant neoplasm of cervix (principal)

== ENCOUNTER 2019-10-07 05:48 | Inpatient (IN) ==
--- NOTE | 2019-10-06 17:05 | History and Physical Report ---
DATE OF ADMISSION: 10/07/2019 PREOPERATIVE HISTORY AND PHYSICAL PREOPERATIVE DIAGNOSES: 1. Intrauterine at 39 and 1/7th weeks. 2. History of previous low transverse section for distress and abruption at 34 and 4/7 weeks. 3. Desire for repeat section. 4. History of substance abuse, currently being managed on Suboxone with a history of positive marijuana urine drug screen during . HISTORY OF PRESENT ILLNESS: The patient is a 28-year-old white female 2, para 0-1-0-1 who presents to labor and delivery this morning for repeat section. Her first was complicated by an emergent at 34-4/7 weeks for nonreassuring heart testing in the setting of suspected abruption. This was a low transverse section. This has been somewhat complicated. She had a positive urine drug screen for marijuana and will need to be tested on admission. She has had poor care and did not have a visit between 23 and 36 weeks. She is currently managed on Suboxone 20 mg b.i.d. She currently denies any other drug use and notes that when we do her urine drug screen in labor and delivery tomorrow, it will be negative except for Suboxone. She notes good movement, no contraction activity. She does note some nausea. She is also taking a vitamin. She denies current use of Reglan or Zofran, although had used it up to 4 times a day throughout . ALLERGIES: OXYCODONE CAUSING A RASH AND NICKEL CAUSING SKIN IRRITATION. MEDICATIONS: Currently, Suboxone 20 mg daily. She has used metoclopramide 10 mg q.6 hours and ondansetron 8 mg q.12 hours as needed and a vitamin. PAST OBSTETRIC AND GYNECOLOGIC HISTORY: As noted above. PAST MEDICAL HISTORY: Significant for history of drug use. She has also had chickenpox. PAST SURGICAL HISTORY: Arthroscopic knee surgery, appendectomy, and hand surgery. SOCIAL HISTORY: The patient is a current everyday smoker admitting to one half pack per day. She denies alcohol or current drug use. She denies a history of sexually transmitted diseases. PHYSICAL EXAMINATION: GENERAL: This is a well-developed, well-nourished white female in no acute distress. VITAL SIGNS: Blood pressure 124/70, weight 187 pounds. NECK: Supple without thyromegaly or lymphadenopathy. CHEST: Clear to auscultation bilaterally. CARDIOVASCULAR: Regular rate and rhythm without murmurs, gallops or rubs. ABDOMEN: Soft, gravid and nontender. EXTREMITIES: Show some trace to +1 edema but are otherwise benign. PELVIC: Deferred. LABORATORY DATA: Blood type A positive, antibody negative, rubella immune, RPR nonreactive, hepatitis B negative, HIV negative, chlamydia and gonorrhea cultures negative. Drug screen on 09/16/2019 is positive for marijuana, drug screen on 06/16/2019 is positive for marijuana. On 06/30/19, she had a 1-hour glucose that was 127. It appears that she did not do a 28-week glucose. ASSESSMENT: Jaimie is a 28-year-old 1, para 0-1-0-1 with history of a previous low transverse section at 34 weeks for nonreassuring heart testing, unfavorable cervix and possible abruption. She presents for repeat section. The risks of the procedure were discussed with the patient including the risks of anesthesia, bleeding requiring transfusion, infection, poor wound healing, damage to surrounding structures including bowel, bladder, vessels, nerves and ureters with need for further surgery, hospitalization or intervention. The risks of blood clot, heart attack, stroke and were also discussed with the patient. The patient is aware she will be taking a urine drug screen on admission and she notes that it should be negative, although marijuana does remain in the urine for up to 12 weeks. She has had poor care. [facility] will be contacted upon her delivery because of poor care and the use of Suboxone. She was instructed to bring in her prescription bottle of Suboxone and we will confirm the dosing with her doctor. Questions were asked and answered and consent was reviewed and signed. MELISSA
[2019-10-07] MEDS ORDERED: SODIUM CHLORIDE 0.9% 250 ML IV PRN (05:49)
[2019-10-07] MEDS ORDERED: CEFAZOLIN 2000MG 2,000 MG/15 ML SYR IV SCH (06:00)
[2019-10-07] MEDS ORDERED: CITRIC ACID/SODIUM CITRATE 15 ML UDC PO SCH (06:00)
[2019-10-07] MEDS ORDERED: LACTATED RINGER'S 1,000 ML IV SCH ×3 (06:00→21:00)
[2019-10-07 06:19] LABS: Appearance Urine Clear (Clear); Bacteria Urine Automated Negative (Negative); Bilirubin Urine Negative (Negative); Blood Urine Negative (Negative); Color Urine Yellow; Epithelial Cell Urine Auto >30 /lpf (0-5); Glucose Urine UA Negative (Negative); Ketones Urine Negative (Negative); Leukocyte Esterase Urine Trace (Negative); Nitrite Urine Negative (Negative); Protein Urine Negative (Negative); RBC Urine Automated 0-4 /hpf (0-4); Specific Gravity Urine 1.022 (1.000-1.030); Urobilinogen Urine Negative (Negative); pH Urine 7.5 (4.5-7.5)
[2019-10-07 06:28] LABS: Basophils # (auto) 0.04 K/uL (0-0.2); Basophils % (auto) 0.2 %; Eosinophils # (auto) 0.33 K/uL (0-0.5); Eosinophils % (auto) 1.9 %; Hematocrit (blood only) 32.4 % (37-47); Hemoglobin 10.5 g/dL (12.0-16.0); Immature Granulocytes # (auto) 0.07 K/uL (0.00-0.02); Immature Granulocytes % (auto) 0.4 %; Lymphocytes # (auto) 4.46 K/uL (1.2-3.4); Lymphocytes % (auto) 25.7 %; Mean Corpuscular Hemoglobin 27.9 pg (25-34); Mean Corpuscular Volume 86.2 fL (80-100); Mean Platelet Volume 10.3 fL (7.4-10.4); Monocytes # (auto) 1.42 K/uL (0.11-0.59); Monocytes % (auto) 8.2 %; Neutrophils # (auto) 11.05 K/uL (1.4-6.5); Neutrophils % (auto) 63.6 %; Platelet Count 311 K/uL (130-400); RDW Coefficient of Variation 16.1 % (11.5-14.5); RDW Standard Deviation 50.7 fL (36.4-46.3); Red Blood Count 3.76 M/uL (4.2-5.4); White Blood Count 17.37 K/uL (4.8-10.8)
[2019-10-07 06:29] LABS: Mean Corpuscular Hgb Conc 32.4 g/dL (32-36)
[2019-10-07 07:01] LABS: Amphetamines+Metham, Urine Neg (Neg); Barbiturates, Urine Neg (Neg); Benzodiazepine, Urine Neg (Neg); Cocaine, Urine Neg (Neg); MDMA (Ecstacy), Urine Neg (Neg); Methadone, Urine Neg (Neg); Opiate, Urine Neg (Neg); Phencyclidine, Urine Neg (Neg)
--- NOTE | 2019-10-07 09:04 | Anesthesiology Consultation ---
Date of Service October 07, 2019 Assessment & Plan Chart Review Chart Review: Acceptable Risk for Surgery and Patient NOT seen in Pre Admission Testing Consults Requested none ASA ASA2 Proposed Anesthesia Anesthesia Type: MAC Spinal Risk / Benefits Reviewed With: PT / POA / Parent / Guardian, Accepts Plan and Informed Consent Obtained History Surgery Operation Date: 10/07/19 07:30 Proposed Procedures p Section in LD - Jackelin Conklin MD, FACOG Height/Weight Height: 5 ft 5 in Weight: 85.275 kg Allergies Allergy/AdvReac Type Severity Reaction Status Date / Time oxycodone Allergy Mild rash Verified 10/06/19 14:16 nickel Allergy SKIN Verified 10/06/19 14:16 IRRITATION Medications Home Medications Medication Instructions Recorded Confirmed Last Taken PNV [id number]-ferrous fumarate-FA 1 tab PO HS 04/12/19 10/07/19 10/07/19 [] buprenorphine-naloxone [Suboxone] 1 film BUCCAL DAILY 10/01/19 10/07/19 10/06/19 20:00 NPO Date Last Intake of Fluids: 10/06/19 Time Last Intake of Fluids: 23:59 Date Last Intake of Solids: 10/06/19 Time Last Intake of Solids: 23:15 Past Medical History Medical History Back pain affecting in third trimester Current smoker (Acute) H/O edema H/O insomnia H/O migraine History of drug use 6 YR AGO Localized pain of joint Nausea (Acute) with 34 completed weeks gestation (Resolved) Varicella Exercise / Class Metabolic Activity II 4-5 Yardwork/Stairs/Walk up hill Past Family History Family History Grandmother (Paternal) Hypertension Mother Leukemia Breast cancer Grandfather (Maternal) Lung cancer Grandfather (Paternal) Lung cancer Past Surgical History Surgical History H/O arthroscopic knee surgery Hx of appendectomy Hx of section Hx of hand surgery Past Anesthesia History No Hx of Anesthesia Complications and No Family Hx of Anesthesia Complications History of PONV No Hx of PONV and No Hx of Motion Sickness Social History Smoking Status: Never smoker tobacco type: cigarettes Smoking cigarettes per day: 1/2 PK PER DAY Hx Alcohol Use: No Hx Substance Use: Yes substance use type: former substance user Last Used Substance Other:: 6 YR AGO Review of Systems no chest pain or sob Physical Exam Vital Signs Last Vital Signs Temp 36.5 C 10/07/19 06:03 Pulse 62 10/07/19 09:01 Resp 18 10/07/19 06:03 BP 105/65 10/07/19 09:01 Pulse Ox 96 10/07/19 09:00 ENMT Mouth: no TMJ abnormality Thyromental Distance: > or= 3.5 Finger Breadths Mallampati Class: II Neck normal visual inspection Respiratory normal respiratory effort Auscultation: lungs clear to auscultation bilaterally Cardiovascular Rate/Rhythm: regular rate and regular rhythm Musculoskeletal Spine: normal cervical ROM Neurologic moves all extremities Psychiatric Orientation: alert and oriented x 3 Testing Laboratory Results 10/07/19 06:11 Urine Color Yellow 10/07/19 05:45 Urine Appearance Clear (Clear) 10/07/19 05:45 Urine pH 7.5 (4.5-7.5) 10/07/19 05:45 Ur Specific [place] 1.022 (1.000-1.030) 10/07/19 05:45 Urine Protein Negative (Negative) 10/07/19 05:45 Urine Glucose (UA) Negative (Negative) 10/07/19 05:45 Urine Ketones Negative (Negative) 10/07/19 05:45 Urine Nitrite Negative (Negative) 10/07/19 05:45 Ur Leukocyte Esterase Trace (Negative) H 10/07/19 05:45 Urine WBC (Auto) 5-10 /hpf (0-5) H 10/07/19 05:45 Urine RBC (Auto) 0-4 /hpf (0-4) 10/07/19 05:45 U Hyaline Cast (Auto) 1-5 /lpf (0-5) 10/07/19 05:45 U Epithel Cells (Auto) >30 /lpf (0-5) H 10/07/19 05:45 Urine Bacteria (Auto) Negative (Negative) 10/07/19 05:45 Blood Type A Positive 10/07/19 06:11 Antibody Screen NEGATIVE 10/07/19 06:11
[2019-10-07] MEDS ORDERED: MoRPHine SULFATE PF 1 MG/ML 10 ML AMP/VIAL ONE (09:05)
[2019-10-07] MEDS ORDERED: fentaNYL citrate 100 MCG/2 ML VIAL ONE (09:05)
[2019-10-07] MEDS ORDERED: OXYTOCIN 10 UNITS/ML VIAL ONE ×2 (09:06→10:27)
[2019-10-07] MEDS ORDERED: ONDANSETRON INJ 2 MG/ML 2 ML VIAL ONE ×2 (09:24→10:38)
[2019-10-07] MEDS ORDERED: NALOXONE HCL 0.4 MG/1 ML VIAL/CARP IV PRN (10:09)
[2019-10-07] MEDS ORDERED: MoRPHine SULFATE PF 1 MG/ML 10 ML AMP/VIAL INT SPINAL ONE (10:09)
[2019-10-07] MEDS ORDERED: ePHEDrine sulfate 50 MG/ML AMP IV PRN (10:09)
[2019-10-07] MEDS ORDERED: DiphenhydrAMINE HCL 50 MG/ML VIAL IV PRN (10:09)
[2019-10-07] MEDS ORDERED: ONDANSETRON INJ 2 MG/ML 2 ML VIAL IV PRN (10:09)
[2019-10-07] MEDS ORDERED: NALBUPHINE HCL INJ 10 MG/ML AMP IV PRN (10:09)
[2019-10-07] MEDS ORDERED: LACTATED RINGER'S 500 ML IV PRN (10:09)
[2019-10-07] MEDS ORDERED: NALOXONE HCL 1 MG in SODIUM CHLORIDE 0.9% 1000ML 1,000 ML IV PRN (10:09)
[2019-10-07] MEDS ORDERED: ONDANSETRON INJ 2 MG/ML 2 ML VIAL IV ONE (10:09)
[2019-10-07] MEDS ORDERED: NALOXONE HCL 0.08 MG in SYRINGE 1.8 ML IV PRN (10:09)
[2019-10-07] MEDS ORDERED: ePHEDrine sulfate 50 MG/ML SYR ONE (10:11)
[2019-10-07] MEDS ORDERED: NO NARCOTICS OR SEDATIVES SCH (10:15)
[2019-10-07] MEDS ORDERED: DC INTRASPINAL MORPHINE SCH (10:15)
[2019-10-07] MEDS ORDERED: SODIUM CHLORIDE 0.9% 1000ML 1,000 ML IV SCH (10:15)
[2019-10-07] MEDS ORDERED: PHENYLEPHRINE HCL 10 MG/ML VIAL ONE (10:18)
--- NOTE | 2019-10-07 10:52 | Post Operative Brief Note ---
PG Immediate Post Op with CF Date of Surgery October 07, 2019 Pre & Post Diagnosis Operation Date: 10/07/19 07:30 Pre-Op Diagnosis: at 39 weeks hx of previous c/s desires repeat Post-op diagnosis same I identified the patient and participated in the time-out.: Yes Procedure Operation Date: 10/07/19 07:30 Repeat lower transverse c/s Surgeon Jackelin Conklin MD, FACOG Clerk Of Scales Dr. Janusz Rudolph DO, PGY 1 Estimated Blood Loss 600 Findings Consistent with Post-Op Diagnosis Drains Meier Catheter
[2019-10-07] MEDS ORDERED: SUPERCREAM 0.870% 15 GM JAR EXT PRN (11:12)
[2019-10-07] MEDS ORDERED: BENZOCAINE 20% AER SPR 82.5 GM CAN EXT PRN (11:12)
[2019-10-07] MEDS ORDERED: DIPHTHERIA/TETANUS/PERTUSSIS 0.5 ML SYR/VIAL IM ONE (11:12)
[2019-10-07] MEDS ORDERED: HYDROCORTISONE ACETATE 25 MG SUPP PR PRN (11:12)
--- NOTE | 2019-10-07 11:18 | Operative Report ---
DATE OF OPERATION: 10/07/2019 PREOPERATIVE DIAGNOSES: 1. Intrauterine at 39+ weeks. 2. History of previous section, desires repeat. POSTOPERATIVE DIAGNOSES: 1. Intrauterine at 39+ weeks. 2. History of previous section, desires repeat. PROCEDURE: Repeat lower transverse section through her established midline vertical incision. SURGEON: Jackelin Conklin MD. OSD CLERK: Janusz Rudolph DO, PGY-1. ANESTHESIA: Spinal. ESTIMATED BLOOD LOSS: 600 mL. FLUIDS: 2000 mL. URINE OUTPUT: 200 mL of clear yellow urine draining from the bladder at the end of the procedure. INDICATIONS: Jaimie is a 2, para 0-1-0-1 with a history of an emergent at 34 weeks for a nonreassuring heart testing with question of abruption. She now presents for repeat section. FINDINGS: Viable male infant, Apgars pending, weight pending. Normal uterus, tubes, and ovaries were noted bilaterally. COMPLICATIONS: None. DRAINS: Meier. DISPOSITION: To recovery room in stable condition. DESCRIPTION OF PROCEDURE: The patient was taken to the operating room where she was identified verbally and by bracelet. She was placed on the operating table where spinal anesthetic was induced without difficulty. She was then placed in dorsal supine position with leftward tilt and a Meier catheter was placed. The patient was prepped and draped in normal sterile fashion. Her anesthetic was tested and found to be adequate and a timeout was held, identifying correct patient, position, procedure and preoperative antibiotic. There were no concerns. The incision was elliptically incised in order to remove it because it had some scarring. The incision was lifted with an Allis clamp and then it was undermined with the knife and then taken out. Bleeding was attended to with Bovie electrocautery. The incision was then taken down to the fascia with the knife. The knife was used in the midline to make a small incision in the fascia and this was taken down with the knife. The fascial incision was then grasped on its left side, elevated, the rectus muscle was pulled away and the incision was continued sharply with the knife. The peritoneum was identified, it was grasped bilaterally with snaps and entered sharply with Stout scissors. The photoradio operator's finger was placed through this hole and there were no adhesions noted. This was taken superiorly and inferiorly sharply with scissors with good visualization of the bladder and then the incision was stretched. The bladder flap was created by grasping the vesicouterine peritoneum with a snap, entering with scissors and taken out laterally with scissors. The bladder flap was created digitally and sharply. The bladder blade was placed. A hysterotomy incision was scored with a knife. It was entered with a snap. Clear fluid was noted on rupture of membranes. The hysterotomy incision was stretched with the photoradio operator's fingers cephalad and caudad. The photoradio operator's hand was then placed into the uterus and the fetus' head was delivered atraumatically using fundal pressure through the hysterotomy incision. The nose and mouth were bulb suctioned and then the rest of the infant was then delivered without difficulty. There was a cry on the operative field while the cord was being clamped and cut and then the was taken over to the waiting records analysis manager for drying and attention. Cord blood and gases were obtained. Placenta was expressed. The uterus was then exteriorized and cleared of all clot and debris with moistened laparotomy sponges. The hysterotomy incision was repaired in 2 layers, the first in a running locked 0 layer, the second in an imbricating 0 layer. Several [id number] sutures of 0 Vicryl were used for oozing areas on the incision until hemostasis was assured. The posterior cul-de-sac was irrigated and cleared of all clot and debris. The hysterotomy incision was again inspected and found to be intact. The uterus was then reanteriorized. The hysterotomy incision was again inspected and found to be intact and hemostatic. The muscles were reapproximated with 3 interrupted sutures of 0 Vicryl. The fascia was reapproximated with 1 PDS starting at the corners and meeting in the midline. The subcuticular tissue was then copiously irrigated with warm normal saline. There was no bleeding noted. The skin was then reapproximated with subcuticular faith. All sponge, lap and needle counts were correct x2. The patient tolerated the procedure well and was taken to recovery room in stable condition. I attest to the content of the Intraoperative Record and any orders documented therein. Any exception s are noted below.
[2019-10-07 11:20] LABS: Base Excess Cord Venous Blood 0.2 mEq/L (-7.7-1.9); Cord Venous Blood HCO3 26 mmol/L (18.4-26.8); Cord Venous Blood PCO2 46 mmHg (30.4-57.2); Cord Venous Blood PO2 24 mmHg (14.1-43.3); Cord Venous Blood pH 7.37 (7.20-7.44)
[2019-10-07 11:25] LABS: Base Excess Cord Arterial Bld -0.7 mEq/L (-9-1.8); CO2 Cord Arterial Blood 56 mmHg (39.1-73.5); HCO3 Cord Arterial Blood 27 mmol/L (19.7-28.5); PO2 Cord Arterial Blood 20 mmHg (4.1-31.7)
[2019-10-07 11:26] LABS: O2 Saturation Cord Venous Bld < 60.0 % (<68); Oxygen Sat Cord Arterial Blood < 60.0 % (<60)
[2019-10-07] MEDS ORDERED: OXYTOCIN 20 UNITS in LACTATED RINGER'S 1,000 ML IV SCH (11:30)
[2019-10-07] MEDS: KETOROLAC 30 MG/ML VIAL IV PRN ×2 (11:48→19:52)
[2019-10-07] MEDS ORDERED: ACETAMINOPHEN 1,000 MG/100 ML VIAL IV PRN (11:58)
--- NOTE | 2019-10-07 12:16 | Anesthesiology Progress Note ---
Date of Service October 07, 2019 Anesthesia Post Procedure Vital Signs Vital Signs: Temp Pulse Resp BP Pulse Ox 10/07/19 12:13 63 97 10/07/19 12:08 68 98 10/07/19 12:05 61 118/60 10/07/19 12:03 61 98 10/07/19 11:58 63 96 10/07/19 11:56 63 118/57 L 10/07/19 11:53 62 98 10/07/19 11:48 63 98 10/07/19 11:45 82 106/73 10/07/19 11:43 61 98 10/07/19 11:38 62 98 10/07/19 11:36 65 117/78 10/07/19 11:33 68 99 10/07/19 11:28 65 98 10/07/19 11:25 62 117/62 10/07/19 11:23 63 96 10/07/19 11:17 63 98 10/07/19 11:15 68 116/57 L 10/07/19 11:12 62 96 10/07/19 11:07 66 99 10/07/19 11:05 118/57 L 10/07/19 11:02 68 99 10/07/19 11:01 64 94 10/07/19 10:57 71 95 10/07/19 10:55 34.7 C L 66 18 109/51 L 10/07/19 09:10 71 99 10/07/19 09:01 62 105/65 10/07/19 09:00 80 96 10/07/19 06:03 36.5 C 18 10/07/19 06:02 80 116/67 Transfer of Care Handoff Completed per policy Notes Mental Status: alert / awake / arousable Patient Amnestic to Procedure: Yes Nausea / Vomiting: adequately controlled Pain: adequately controlled Airway Patency, RR, SpO2: stable & adequate BP & HR: stable & adequate Hydration State: stable & adequate Neuraxial Anesthesia: was administered and sensory block is resolving Anesthetic Complications: no major complications apparent and Pt Satisfied with anesthetic care
[2019-10-07] MEDS: SIMETHICONE 80 MG CHEW PO SCH ×4 (15:52→20:55)
[2019-10-07] MEDS: HYDROmorphone INJ 0.5 MG/0.5 ML SYR IV PRN ×2 (16:10→22:33)
[2019-10-07] MEDS: NICOTINE 21 MG/24 HR TDSY TD SCH (19:52)
[2019-10-07] MEDS ORDERED: BUPRENORPHINE/NALOXONE 8/2 MG TAB SL SCH (21:00)
[2019-10-07] MEDS ORDERED: buprenorphine HCL 8 MG SUBL SL SCH (21:00)
[2019-10-08] MEDS: KETOROLAC 30 MG/ML VIAL IV PRN (03:13)
[2019-10-08] MEDS ORDERED: DiphenhydrAMINE HCL 50 MG/ML VIAL IV PRN (04:09)
[2019-10-08] MEDS ORDERED: KETOROLAC 30 MG/ML VIAL IV PRN (04:09)
[2019-10-08] MEDS ORDERED: MEPERIDINE HCL 50 MG/ML CARP IV PRN (04:09)
[2019-10-08] MEDS ORDERED: HYDROmorphone INJ 2 MG/ML SYR/VIAL IM PRN (04:10)
--- NOTE | 2019-10-08 06:40 | Obstetrical Progress Note ---
Date of Service <Janusz Gallagheryobany - Last Filed: 10/08/19 06:45> October 08, 2019 Assessment & Plan <Janusz GallaghernDO - Last Filed: 10/08/19 06:45> (1) : -POD#1 -Vitals reviewed, WNL (Tmax 36.9) - GBS -, Blood Type A+ - Clinically stable. - Feels well today. Eating well, ambulating well. Meier D/C. - Pain control as needed. - Continue home subutex - Routine post care - After discharge will have [address] Conklin. Weeks of gestation: unspecified Qualified Code(s): Z34.90 - Encounter for supervision of normal , unspecified, unspecified trimester Day #:: 1 Subjective <Janusz Gallagheryobany - Last Filed: 10/08/19 06:45> Ambulation: ambulating normally Voiding: no voiding problems Passing Gas:: Yes Diet Tolerance:: regular diet Lochia:: Moderate Feeding Type:: breast feeding (and bottle ) Current Pain Level(1-10): 6 (improves with analgesics) Patient is a 28 POD#1. Patient states that overall her pain has been fairly well controlled. She is noting some discomfort currently, but states she had not had any analgesics since roughly 4-5 hours ago. She otherwise has no complaints this morning. Constitutional: no fever and no chills Respiratory: no cough, no dyspnea and no wheezing Cardiovascular: no chest pain, no dyspnea, no dyspnea on exertion, no edema and no calf pain Breast: no breast pain Gastrointestinal: + abdominal pain (with movement, along incision); no nausea and no vomiting Genitourinary (female): no dysuria Neurologic: no headache(s) Physical Exam <Janusz Gallagheryobany - Last Filed: 10/08/19 06:45> Constitutional WD/WN, vitals as above Respiratory normal respiratory effort, lungs clear to auscultation Cardiovascular Rate/Rhythm: regular rate and regular rhythm Heart Sounds: normal S1 and normal S2; no click, no gallop, no murmur and no cardiac rub Extremities: + edema (+1); no calf tenderness Gastrointestinal (Abdomen) Inspection/Auscultation: abdomen normal to inspection, normal bowel sounds and + abdominal surgical incision (Dressing Clean and Dry) Percussion/Palpation: + abdomen tender (TTP in lower quadrants, appropriate) and abdomen soft Genitourinary OB Exam Abdomen: + fundal height Fundus: + firm and + relation to umbilicus (1cm below, difficult to obtain secondary to pain at incision. ); not tender and not boggy Results & Data <Janusz Rudolph DO - Last Filed: 10/08/19 06:45> Vital Signs (Past 12 Hours) Vital Signs Temp Pulse Resp BP Pulse Ox 10/08/19 04:09 16 97 10/08/19 03:30 36.7 C 58 L 16 108/65 95 10/08/19 02:05 18 97 10/08/19 01:20 16 95 10/08/19 00:20 16 95 10/07/19 23:30 36.6 C 70 18 105/57 L 95 10/07/19 23:15 16 96 10/07/19 22:15 22 96 10/07/19 21:15 18 95 10/07/19 20:15 20 96 10/07/19 19:20 36.7 C 62 18 112/68 98 <Jackelin Conklin MD, FACOG - Last Filed: 10/08/19 07:25> Co-Signing Physician Notes Resident Physician Supervision Note: I interviewed and examined the patient. Discussed with Dr. Rudolph and agree with findings and plan as documented in the note. Any exceptions or clarifications are listed here: Agree with assessment. POD 2. Plan to restart subutex today. Chart reveiw shows pain management last was with dilauded. Will trial this. Breast feeding so not a candidate for codeine. Routine pp care. SS consult. Documented By: Jackelin Conklin MD, FACOG Resident Activity Tracking <Janusz Rudolph DO - Last Filed: 10/08/19 06:45> Resident Involvement: Resident Care Provided Care Provided: OB Delivery
[2019-10-08 07:27] LABS: Basophils # (auto) 0.03 K/uL (0-0.2); Basophils % (auto) 0.2 %; Eosinophils # (auto) 0.31 K/uL (0-0.5); Eosinophils % (auto) 2.4 %; Hematocrit (blood only) 29.8 % (37-47); Hemoglobin 9.4 g/dL (12.0-16.0); Immature Granulocytes # (auto) 0.06 K/uL (0.00-0.02); Immature Granulocytes % (auto) 0.5 %; Lymphocytes # (auto) 3.38 K/uL (1.2-3.4); Lymphocytes % (auto) 26.5 %; Mean Corpuscular Hemoglobin 27.4 pg (25-34); Mean Corpuscular Hgb Conc 31.5 g/dL (32-36); Mean Corpuscular Volume 86.9 fL (80-100); Mean Platelet Volume 10.8 fL (7.4-10.4); Monocytes # (auto) 0.99 K/uL (0.11-0.59); Monocytes % (auto) 7.8 %; Neutrophils # (auto) 7.99 K/uL (1.4-6.5); Neutrophils % (auto) 62.6 %; Platelet Count 270 K/uL (130-400); RDW Coefficient of Variation 16.4 % (11.5-14.5); RDW Standard Deviation 52.3 fL (36.4-46.3); Red Blood Count 3.43 M/uL (4.2-5.4); White Blood Count 12.76 K/uL (4.8-10.8)
[2019-10-08] MEDS: HYDROmorphone HCL 2 MG TAB PO PRN (08:39)
[2019-10-08] MEDS: buprenorphine HCL 8 MG SUBL SL SCH (08:39)
[2019-10-08] MEDS: IBUPROFEN 600 MG TAB PO PRN ×3 (08:40→17:03)
[2019-10-08] MEDS: SIMETHICONE 80 MG CHEW PO SCH ×4 (08:40→20:34)
[2019-10-08] MEDS: PRENATAL VITAMIN 1 TAB PO SCH (08:40)
[2019-10-08] MEDS ORDERED: BUPRENORPHINE/NALOXONE 8/2 MG TAB SL SCH (09:00)
[2019-10-08] MEDS: NICOTINE 21 MG/24 HR TDSY TD SCH (10:23)
[2019-10-09] MEDS: HYDROmorphone HCL 2 MG TAB PO PRN ×2 (01:01→09:39)
[2019-10-09] MEDS: IBUPROFEN 600 MG TAB PO PRN ×2 (01:01→09:39)
--- NOTE | 2019-10-09 06:30 | Obstetrical Progress Note ---
Date of Service <Janusz Rudolph DO - Last Filed: 10/09/19 06:30> October 09, 2019 Assessment & Plan <Janusz Rudolph DO - Last Filed: 10/09/19 06:30> (1) : -POD#2 -Vitals reviewed, WNL (Tmax 36.7) - GBS -, Blood Type A+ - Clinically stable. - Feels well today. Eating well, ambulating well, voiding well. - Pain control as needed with PO Dilaudid. - Continue home subutex - Routine post care - After discharge will have [address] Conklin. Weeks of gestation: unspecified Qualified Code(s): Z34.90 - Encounter for supervision of normal , unspecified, unspecified trimester Day #:: 2 Subjective <Janusz Rudolph DO - Last Filed: 10/09/19 06:30> Ambulation: ambulating normally Voiding: no voiding problems Passing Gas:: Yes Diet Tolerance:: regular diet Lochia:: Small Feeding Type:: breast feeding (and bottle) Current Pain Level(1-10): 2 (improves with analgesics) Patient is a 28 POD#2. Patient states that she is doing well this morning and that her pain is well controlled. She has no complaints at this point in time. Constitutional: no fever and no chills Respiratory: no cough, no dyspnea and no wheezing Cardiovascular: no chest pain, no dyspnea, no dyspnea on exertion, no edema and no calf pain Breast: no breast pain Gastrointestinal: + abdominal pain (surrounding incision line, appropriate); no nausea and no vomiting Genitourinary (female): no dysuria Neurologic: no headache(s) Physical Exam <Janusz Gallagheryobany - Last Filed: 10/09/19 06:30> Constitutional WD/WN, vitals as above Respiratory normal respiratory effort, lungs clear to auscultation Cardiovascular Rate/Rhythm: regular rate and regular rhythm Heart Sounds: normal S1 and normal S2; no click, no gallop, no murmur and no cardiac rub Extremities: + edema (+1); no calf tenderness Gastrointestinal (Abdomen) Inspection/Auscultation: abdomen normal to inspection, normal bowel sounds and + abdominal surgical incision (Clean, Dry, Intact, no pus noted) Percussion/Palpation: + abdomen tender (TTP in lower quadrants, appropriate) and abdomen soft Genitourinary OB Exam Abdomen: + fundal height Fundus: + firm and + relation to umbilicus (1cm below); not tender and not boggy Results & Data <Janusz Rudolph DO - Last Filed: 10/09/19 06:30> Vital Signs (Past 12 Hours) Vital Signs Temp Pulse Resp BP 10/08/19 23:00 36.6 C 66 18 124/75 <Mal Leung Jr, MD, FACOG - Last Filed: 10/09/19 07:34> Co-Signing Physician Notes Resident Physician Supervision Note: I was present with Dr. Rudolph during the history and exam. I discussed the case with the resident and agree with the findings and plan as documented in the note. Any exceptions or clarifications are listed here: Patient desires discharge home. Instructions given. Discussed concerns with Dilaudid and Subutex, questions answered. Patient to f/u 10/14 for staple removal. Documented By: Mal Leung Jr, MD, FACOG Resident Activity Tracking <Janusz Rudolph DO - Last Filed: 10/09/19 06:30> Resident Involvement: Resident Care Provided Care Provided: OB Delivery
[2019-10-09 06:46] LABS: Hematocrit (blood only) 30.2 % (37-47); Hemoglobin 9.8 g/dL (12.0-16.0)
[2019-10-09] MEDS: PRENATAL VITAMIN 1 TAB PO SCH (09:26)
[2019-10-09] MEDS: buprenorphine HCL 8 MG SUBL SL SCH (09:27)
[2019-10-09] MEDS: SIMETHICONE 80 MG CHEW PO SCH (09:27)
[2019-10-09 13:24] LABS: Marijuana Quant, GCMS Urine 765 ng/mL (<5)
--- NOTE | 2019-10-11 10:10 | Discharge Summary ---
ADMISSION DIAGNOSES: 1. Intrauterine at 39 and 1/7th weeks. 2. History of previous low transverse section for distress and presumed abruption at 34 and 4/7 weeks. 3. Desire for repeat section. 4. History of substance abuse, currently managed on Subutex with history of positive marijuana urine drug screen during . POSTOPERATIVE DIAGNOSES: 1. Intrauterine at 39 and 1/7th weeks. 2. History of previous low transverse section for distress and presumed abruption at 34 and 4/7 weeks. 3. Desire for repeat section. 4. History of substance abuse, currently managed on Subutex with history of positive marijuana urine drug screen during . PROCEDURES: Repeat lower transverse section. HISTORY OF PRESENT ILLNESS: The patient is a 28-year-old white female 2, para 0-1-0-1 who presents to labor and delivery this morning for repeat section. Her first was complicated by an emergent at 34 and 4/7 weeks for nonreassuring heart testing in the setting of suspected abruption. This was a low transverse section. This has been somewhat complicated. She had a positive urine drug screen for marijuana twice in the and will need to be tested on admission. She has had poor care and did not have a visit between 23 and 36 weeks. She is currently managed on Subutex 20 mg daily. She currently denies any other drug use and notes that when we do a urine drug screen in labor and delivery on the day of admission, it will be negative except for Subutex. She notes good movement, no contractions. She does note some nausea. She is also taking a vitamin. She denies current use of Reglan or Zofran, although had used up to 4 times a day throughout the . For the rest of the patient's detailed history and physical, please see her dictated history and physical. ASSESSMENT: Jaimie is a 28-year-old 1, para 0-1-0-1 with history of a previous low transverse section at 34 weeks for nonreassuring heart testing, unfavorable cervix and possible abruption. She presents for repeat section. Additionally, she has had poor care, positive urine drug screen for marijuana and [facility] will be contacted upon admission. HOSPITAL COURSE: The patient was admitted and she underwent a repeat lower transverse section through her established midline vertical incision. With an estimated blood loss of 600 mL, she delivered a viable male . Normal uterus, tubes, and ovaries were noted bilaterally. Her postoperative course was uncomplicated. She has received 24 hours of IV Toradol and Tylenol and then she was managed with p.o. Dilaudid. She tolerated a regular diet, ambulated without difficulty, voided after the removal of her Meier catheter and ambulated. Her pain was well controlled with p.o. Dilaudid. She was discharged home with p.o. Dilaudid as well as to continue her home Subutex dosage. She will return in 6 weeks for followup. Her discharge H and H were 9.8 and 30.2.
== END 2019-10-09 13:54 | disposition home or self-care (01) | DRG 787 ==
LOC: 4S1 05:48 → EDSTATUS 07:30 → 4S2 13:15

== ENCOUNTER 2021-02-14 06:27 | Inpatient (IN) ==
--- NOTE | 2021-02-02 14:29 | Anesthesiology Consultation ---
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 Denies any recent travel. Uses mask. Pt is not currently vaccinated. No known Covid positive contacts or Covid related symptoms. No known Covid infection in the past 90 days. Preop Covid testing scheduled 02/10/21= will await results. 10/07/2019 = done under SAB at L3/4 with 1 attempt. No anesthesia issues noted per anesthesia record. History Surgery Operation Date: 02/14/21 09:25 Proposed Procedures p Section in - Klaus Rodriguez MD Height/Weight Height: 5 ft 5 in Weight: 85.275 kg Allergies Allergy/AdvReac Type Severity Reaction Status Date / Time oxycodone Allergy Mild rash Verified 02/02/21 13:13 nickel Allergy SKIN Verified 02/02/21 13:13 IRRITATION Medications Home Medications Medication Instructions Recorded Confirmed Last Taken PNV cmb#95-ferrous fumarate-FA 1 tab PO HS 04/12/19 02/02/21 10/07/19 [] buprenorphine HCl 20 mg SUBLINGUAL BID 06/26/20 02/02/21 06/25/20 ondansetron 4 mg PO Q4H PRN #12 tab 06/26/20 02/02/21 Unknown ferrous sulfate 28 mg PO QAM 02/02/21 02/02/21 Unknown Past Medical History Medical History Back pain affecting in third trimester Chronic back pain Current smoker H/O edema has some leg swelling during H/O insomnia H/O migraine History of drug use 7 YR AGO and no problems since Nausea Past Family History Family History Grandmother (Paternal) Hypertension Mother Leukemia Breast cancer Grandfather (Maternal) Lung cancer Grandfather (Paternal) Lung cancer Past Surgical History Surgical History H/O arthroscopic knee surgery left Hx of appendectomy Hx of section x2 Hx of hand surgery Social History Smoking Status: Current every day smoker tobacco type: cigarettes Smoking cigarettes per day: 1/2 ppd Do You Dip or Chew Tobacco: No Hx Alcohol Use: No Hx Substance Use: Yes substance use type: heroin Last Used Substance Other:: 7 years ago
[2021-02-14] MEDS ORDERED: LACTATED RINGER'S 1,000 ML IV SCH (06:45)
[2021-02-14] MEDS ORDERED: ceFAZolin 2000MG 2,000 MG/15 ML SYR IV ONE (07:00)
[2021-02-14] MEDS ORDERED: CITRIC ACID/SODIUM CITRATE 15 ML UDC PO SCH (07:00)
[2021-02-14 07:10] LABS: Basophils # (auto) 0.02 K/uL (0-0.2); Basophils % (auto) 0.2 %; Eosinophils # (auto) 0.18 K/uL (0-0.5); Eosinophils % (auto) 1.5 %; Hematocrit (blood only) 30.9 % (37-47); Hemoglobin 9.9 g/dL (12.0-16.0); Immature Granulocytes # (auto) 0.05 K/uL (0.00-0.02); Immature Granulocytes % (auto) 0.4 %; Lymphocytes # (auto) 3.72 K/uL (1.2-3.4); Lymphocytes % (auto) 30.2 %; Mean Corpuscular Hemoglobin 26.2 pg (25-34); Mean Corpuscular Volume 81.7 fL (80-100); Mean Platelet Volume 10.3 fL (7.4-10.4); Monocytes # (auto) 1.05 K/uL (0.11-0.59); Monocytes % (auto) 8.5 %; Neutrophils % (auto) 59.2 %; Platelet Count 330 K/uL (130-400); RDW Coefficient of Variation 15.3 % (11.5-14.5); RDW Standard Deviation 44.9 fL (36.4-46.3); Red Blood Count 3.78 M/uL (4.2-5.4); White Blood Count 12.32 K/uL (4.8-10.8)
[2021-02-14] MEDS ORDERED: NALOXONE HCL 1 MG in SODIUM CHLORIDE 0.9% 1000ML 1,000 ML IV PRN (07:23)
[2021-02-14] MEDS ORDERED: MoRPHine SULFATE PF 1 MG/ML 10 ML AMP/VIAL INT SPINAL ONE (07:23)
[2021-02-14] MEDS ORDERED: NALOXONE HCL 0.4 MG/1 ML VIAL/CARP IV PRN (07:23)
[2021-02-14] MEDS ORDERED: diphenhydrAMINE 50 MG/ML VIAL IV PRN (07:23)
[2021-02-14] MEDS ORDERED: ePHEDrine sulfate 50 MG/ML AMP IV PRN (07:23)
[2021-02-14] MEDS ORDERED: ONDANSETRON INJ 2 MG/ML 2 ML VIAL IV PRN (07:23)
[2021-02-14] MEDS ORDERED: LACTATED RINGER'S 500 ML IV PRN (07:23)
[2021-02-14] MEDS ORDERED: NALOXONE HCL 0.08 MG in SYRINGE 1.8 ML IV PRN (07:23)
[2021-02-14] MEDS ORDERED: SODIUM CHLORIDE 0.9% 1000ML 1,000 ML IV SCH (07:30)
[2021-02-14] MEDS ORDERED: NO NARCOTICS OR SEDATIVES SCH (07:30)
[2021-02-14] MEDS ORDERED: DC INTRASPINAL MORPHINE SCH (07:30)
--- NOTE | 2021-02-14 07:45 | History & Physical Report ---
Date of Service February 14, 2021 Assessment & Plan (1) Anemia: (2) Encounter for pre-operative examination: (3) complicated by subutex maintenance, antepartum: (4) History of delivery: 30 yo at 39.4 wks with prior h/o 2 Csections, desires Repear Csection and excision of scarring from mildine skin incision and declines tubal sterilization, signed and informed consent VSS Afebrile FHR reassuring See HPI for problems Will proceed with scheduled surgery as planned Admission and Anticipated Discharge Date Admission Date: February 14, 2021 History of Present Illness Primary Care Provider: NO PCP Patient is a 30 yo at 39.4 wks who has h/o prior 2 Csections and was scheduled for Repeat Csection. No complaints today. No ctxs/ LOF/VB +FM Her has been complicated by 1) HCV 2) Smoker, tobacco 3) on Subutex for chronic pain 4) h/p placental abruption at 34+ wks, emergency Csection 5) h/o prior 2 Csections 6) Anemia Allergies Allergy/AdvReac Type Severity Reaction Status Date / Time oxycodone Allergy Mild rash Verified 02/02/21 13:13 nickel Allergy SKIN Verified 02/02/21 13:13 IRRITATION Home Medications Medication Instructions Recorded Confirmed Type PNV cmb#95-ferrous fumarate-FA 1 tab PO HS 04/12/19 02/02/21 History [] buprenorphine HCl 20 mg SUBLINGUAL BID 06/26/20 02/02/21 History ondansetron 4 mg PO Q4H PRN #12 tab 06/26/20 02/02/21 Rx ferrous sulfate 28 mg PO QAM 02/02/21 02/02/21 History Patient History Medical History Anemia Back pain affecting in third trimester Chronic back pain Current smoker H/O edema has some leg swelling during H/O insomnia H/O migraine History of drug use 7 YR AGO and no problems since Nausea Surgical History H/O arthroscopic knee surgery left Hx of appendectomy Hx of section x2 Hx of hand surgery Family History Grandmother (Paternal) Hypertension Mother Leukemia Breast cancer Grandfather (Maternal) Lung cancer Grandfather (Paternal) Lung cancer Social History Smoking Status: Current every day smoker Cigarettes Per Day: 10; Second Hand Exposure: Yes; Do You Dip or Chew Tobacco: No; Tobacco Cessation Education Requested by Patient: No Hx Alcohol Use: No Hx Substance Use: Yes Last Used Substance: Days (ago) Last Used Substance Other:: 6 years ago Substance Use Type Other:: Narcotic usage Preferred Language: Croatian Communication Ability: Effective Casting Molder Required: No Beliefs That Will Affect Care: None marital status: Current Living Situation: Spouse and Family Current Living Situation Comment: Lives with and two sons Other Information That Helps Us Care for You: No Feels Safe at Home: Yes Safety Concerns: Feels Safe At This Time Seatbelt Use: always Assistive Devices: None OB History 2017, placental abruption at 34.4 wks, Cection 2019 [facility]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2-5.4) M/uL Hgb 9.9 L (12.0-16.0) g/dL Hct 30.9 L (37-47) % MCV 81.7 (80-100) fL MCH 26.2 (25-34) pg MCHC 32.0 (32-36) g/dL RDW Std Deviation 44.9 (36.4-46.3) fL RDW Coeff of Chang 15.3 H (11.5-14.5) % Plt Count 330 (130-400) K/uL MPV 10.3 (7.4-10.4) fL Immature Gran % (Auto) 0.4 % Neut % (Auto) 59.2 % Lymph % (Auto) 30.2 % [place] % (Auto) 8.5 % Eos % (Auto) 1.5 % Baso % (Auto) 0.2 % Neut # (Auto) 7.30 H (1.4-6.5) K/uL Lymph # (Auto) 3.72 H (1.2-3.4) K/uL [place] # (Auto) 1.05 H (0.11-0.59) K/uL Eos # (Auto) 0.18 (0-0.5) K/uL Baso # (Auto) 0.02 (0-0.2) K/uL Immature Gran # (Auto) 0.05 H (0.00-0.02) K/uL Monitoring External Monitor Categ I
[2021-02-14] MEDS ORDERED: MoRPHine SULFATE PF 1 MG/ML 10 ML AMP/VIAL ONE (08:02)
[2021-02-14] MEDS ORDERED: fentaNYL citrate 100 MCG/2 ML VIAL ONE (08:02)
[2021-02-14] MEDS ORDERED: OXYTOCIN 10 UNITS/ML VIAL ONE ×2 (08:04→09:23)
[2021-02-14] MEDS ORDERED: PHENYLEPHRINE 100MCG/ML 5ML SYR ONE (08:21)
[2021-02-14] MEDS ORDERED: BENZOCAINE 20% AER SPR 82.5 GM CAN EXT PRN (09:38)
[2021-02-14] MEDS ORDERED: SUPERCREAM 0.870% 15 GM JAR EXT PRN (09:38)
[2021-02-14] MEDS ORDERED: HYDROCORTISONE ACETATE 25 MG SUPP PR PRN (09:38)
[2021-02-14] MEDS ORDERED: MAGNESIUM HYDROXIDE SUSP 30 ML UDC PO PRN (09:38)
[2021-02-14] MEDS ORDERED: DIPHTHERIA/TETANUS/PERTUSSIS 0.5 ML SYR/VIAL IM ONE (09:38)
[2021-02-14] MEDS ORDERED: SENNA 8.6 MG TAB PO PRN (09:38)
[2021-02-14] MEDS ORDERED: MEASLES, MUMPS & RUBELLA VIRUS VIAL SQ ONE (09:38)
[2021-02-14] MEDS ORDERED: ACETAMINOPHEN 1,000 MG/100 ML VIAL IV PRN ×2 (09:38→11:15)
--- NOTE | 2021-02-14 09:38 | Post Operative Brief Note ---
Immediate Post Op Note v1 Date of Surgery February 14, 2021 Pre & Post Diagnosis Operation Date: 02/14/21 07:55 Pre-Op Diagnosis: 1. Prior c-sections x 2 Post-Op Diagnosis: Same I identified the patient and participated in the time-out.: Yes Procedure Operation Date: 02/14/21 07:55 Actual Procedures p Section in LD; Repeat lower uterine transverse section for the of a live boy infant at 0834 in OR #3.(Bilateral) Excision/ revision of old scar - Klaus Rodriguez MD Surgeon Klaus Rodriguez MD Singer And Unloader Dr Sr Estimated Blood Loss 600 Findings Consistent with Post-Op Diagnosis Drains Meier Catheter (Meier catheter inserted without difficulty by Rufina Abrams RN. Patent and draining clear yellow urine. ) Anesthesia Type Spinal Complications none Disposition Accompanied Patient To Recovery: Yes Disposition: L&D
--- NOTE | 2021-02-14 10:04 | Anesthesiology Progress Note ---
Date of Service February 14, 2021 Anesthesia Post Procedure Vital Signs Vital Signs: Temp Pulse Resp BP Pulse Ox 02/14/21 10:01 63 98 02/14/21 09:57 72 90 02/14/21 09:56 77 94 02/14/21 09:51 50 L 96 02/14/21 09:47 55 L 97/53 L 02/14/21 09:46 53 L 96 02/14/21 07:56 60 97 02/14/21 07:51 58 L 96 02/14/21 07:48 76 94 02/14/21 07:46 63 95 02/14/21 07:43 82 93 02/14/21 07:41 59 L 96 02/14/21 07:38 62 119/72 02/14/21 06:43 36.8 C 75 18 109/66 02/14/21 06:42 75 109/66 Transfer of Care Handoff Completed per policy Notes Mental Status: alert / awake / arousable Patient Amnestic to Procedure: Yes Nausea / Vomiting: adequately controlled Pain: adequately controlled Airway Patency, RR, SpO2: stable & adequate BP & HR: stable & adequate Hydration State: stable & adequate Neuraxial Anesthesia: was administered and sensory block is resolving Anesthetic Complications: no major complications apparent and Pt Satisfied with anesthetic care
[2021-02-14] MEDS: HYDROmorphone INJ 0.5 MG/0.5 ML SYR IV PRN ×2 (10:15→23:40)
[2021-02-14] MEDS: buprenorphine HCL 8 MG SUBL SL SCH ×2 (10:40→20:50)
[2021-02-14] MEDS: KETOROLAC 30 MG/ML VIAL IV PRN ×2 (10:44→19:07)
--- NOTE | 2021-02-14 11:08 | Operative Report (OR) ---
DATE OF PROCEDURE: 02/14/2021 PREOPERATIVE DIAGNOSES: The patient is a 30-year-old 3, para 1-1-0-2, at 39 weeks and 4 days of gestation, history of prior 2 sections, history of placental abruption, keloid type scar of the midline vertical abdominal incision and desire for removal/ revision of scar. POSTOPERATIVE DIAGNOSES: The patient is a 30-year-old 3, para 1-1-0-2, at 39 weeks and 4 days of gestation, history of prior 2 sections, history of placental abruption, keloid type scar of the midline vertical abdominal incision and desire for removal/ revision of scar. PROCEDURE: Repeat low transverse with midline vertical skin incision and excision/ revision of skin scar. SURGEON: Klaus Rodriguez MD. SACK SEWER MACHINE: Donald Sr MD. ESTIMATED BLOOD LOSS: 600 mL. DRAINS: Meier catheter drained 180 mL of clear urine. ANESTHESIA: Spinal. ANESTHESIOLOGIST: Dr. Howard. COMPLICATIONS: None. FINDINGS: Baby was a viable male delivered at 8:34 a.m. Apgars were 9 and 9, weight was 3493 grams. Maternal findings; the patient had a prior midline vertical incision from appendectomy, this was used during prior 2 C- sections. There was a thick/ keloid type scar in the middle of the incision. The patient desired this to be removed and revised. The uterus, fallopian tubes and ovaries were normal. Lower uterine segment was normal and intact. DESCRIPTION OF PROCEDURE: The patient was taken to the operating room where spinal anesthesia was given to be adequate. She was placed in dorsal supine position with a leftward tilt. She was prepared and draped in the usual sterile fashion. A midline vertical incision was made from the old incision scar and carried through to the underlying layer of fascia with the Bovie. Fascia was incised with a tip of Bovie and then we were able to see the peritoneum. It was entered bluntly and then 2 fingers were placed under the incision, and the midline fascia was incised with Stout scissors cephalad and caudal, and then a bladder blade was inserted. Vesicouterine peritoneum was identified, grasped with pickups, entered sharply with Metzenbaum scissors. Bladder blade was created digitally and bladder blade was reinserted, and lower uterine segment was intact and thick. It was incised in a transverse fashion. Incision was extended laterally with the help of bandage scissors. Membranes were ruptured, clear fluid was obtained. The baby's head was delivered without difficulty. Shoulders were delivered with minimal traction. Mouth and nose were suctioned. Baby was vigorously crying and moving. Cord was clamped x2 and cut at 1 minute delay. The baby was handed to the waiting pediatric team. Cord blood was obtained. Placenta was delivered manually as intact and complete. Uterus was exteriorized and cleared of all clots and debris. The uterine incision was repaired with 0 Vicryl in a running locked fashion and a second imbricating layer was placed with 0 Vicryl in a running locked fashion. There were some oozing spots in the middle of the incision. Those were repaired with 0 Vicryl with [id number] stitches and excellent hemostasis was achieved. Cul-de-sac was irrigated with warm normal saline and suctioned. Normal fallopian tubes, ovaries, and peritoneum was identified. Uterus was returned to the abdomen. Pelvis was irrigated with warm normal saline and suctioned. Incision was checked to be hemostatic again. Vesicouterine peritoneum was reapproximated with 3-0 Vicryl in a running fashion. Then the abdominal wall was closed in a bulk manner bringing the fascia, muscle and peritoneum together with #0 lo. The subcuticular fatty tissue was reapproximated with 2-0 plain catgut. Multiple layer of sutures were placed to bring the skin edges together and then skin was closed with faith. A pressure dressing was applied to the incision and bandage was placed. The mom and baby tolerated the procedure well. Sponge, lap, and needle count was correct x3. No complications happened. I was and Dr. Sr was present during the whole procedure. The was taken to recovery room in stable condition. She has received 2 grams of Cefazolin before surgery. Job ID: [id number] [facility]
[2021-02-14] MEDS: OXYTOCIN 20 UNITS in LACTATED RINGER'S 1,000 ML IV SCH ×2 (11:19→21:32)
[2021-02-14] MEDS ORDERED: GLYCOPYRROLATE 0.2 MG/ML VIAL ONE (11:25)
[2021-02-14] MEDS: SIMETHICONE 80 MG CHEW PO SCH ×3 (13:13→20:50)
[2021-02-14] MEDS: DOCUSATE SODIUM 100 MG CAP PO SCH (20:50)
[2021-02-14] MEDS: NICOTINE 7 MG/24 HR TDSY TD SCH (21:33)
[2021-02-15] MEDS: HYDROmorphone HCL 2 MG TAB PO PRN ×6 (01:22→20:13)
[2021-02-15] MEDS ORDERED: LACTATED RINGER'S 1,000 ML IV SCH (02:00)
[2021-02-15] MEDS: IBUPROFEN 600 MG TAB PO PRN ×4 (03:21→21:15)
[2021-02-15] MEDS ORDERED: diphenhydrAMINE Capsule 25 MG CAP PO PRN ×2 (03:30→07:30)
[2021-02-15] MEDS ORDERED: PROMETHAZINE HCL 25 MG in SODIUM CHLORIDE 0.9% 50 ML IV PRN (07:30)
[2021-02-15] MEDS ORDERED: ONDANSETRON INJ 2 MG/ML 2 ML VIAL IV PRN (07:30)
[2021-02-15] MEDS ORDERED: diphenhydrAMINE 50 MG/ML VIAL IV PRN (07:30)
[2021-02-15] MEDS ORDERED: MEPERIDINE HCL 50 MG/ML CARP IV PRN (07:30)
[2021-02-15] MEDS ORDERED: KETOROLAC 30 MG/ML VIAL IV PRN (07:30)
[2021-02-15 08:20] LABS: Basophils # (auto) 0.02 K/uL (0-0.2); Basophils % (auto) 0.1 %; Eosinophils # (auto) 0.11 K/uL (0-0.5); Eosinophils % (auto) 0.8 %; Hematocrit (blood only) 31.6 % (37-47); Hemoglobin 9.9 g/dL (12.0-16.0); Immature Granulocytes # (auto) 0.04 K/uL (0.00-0.02); Immature Granulocytes % (auto) 0.3 %; Lymphocytes # (auto) 3.06 K/uL (1.2-3.4); Lymphocytes % (auto) 21.5 %; Mean Corpuscular Hemoglobin 25.4 pg (25-34); Mean Corpuscular Hgb Conc 31.3 g/dL (32-36); Mean Platelet Volume 10.4 fL (7.4-10.4); Monocytes # (auto) 1.01 K/uL (0.11-0.59); Monocytes % (auto) 7.1 %; Neutrophils # (auto) 10.01 K/uL (1.4-6.5); Neutrophils % (auto) 70.2 %; Platelet Count 332 K/uL (130-400); RDW Coefficient of Variation 15.6 % (11.5-14.5); RDW Standard Deviation 45.1 fL (36.4-46.3); White Blood Count 14.25 K/uL (4.8-10.8)
[2021-02-15] MEDS: DOCUSATE SODIUM 100 MG CAP PO SCH ×2 (08:24→21:15)
[2021-02-15] MEDS: SIMETHICONE 80 MG CHEW PO SCH ×4 (08:24→21:15)
[2021-02-15] MEDS: buprenorphine HCL 8 MG SUBL SL SCH ×2 (08:25→21:15)
[2021-02-15] MEDS: PRENATAL VITAMIN 1 TAB PO SCH (08:25)
[2021-02-15] MEDS: FERROUS SULFATE 325 MG TAB PO SCH (08:25)
[2021-02-15] MEDS: NICOTINE 7 MG/24 HR TDSY TD SCH (08:26)
--- NOTE | 2021-02-15 10:45 | Obstetrical Progress Note ---
Date of Service February 15, 2021 Assessment & Plan Admission and Anticipated Discharge Date Admission Date: February 14, 2021 Subjective Patient is seen and examined. She feels well, no complaints other than soreness on incision. Pain is under control with oral meds. IV site was not working, and was switched to PO Dilaudid, Motrin and Tylenol Ambulating without dizziness Voiding without difficulty Tolerating regular diet with out N&V Flatus + BM neg Bleeding is minimal No fever/ chills/ CP/ SOB/ N&V/ Leg pain Bottle feeding without problems Vital Signs Temp Pulse Pulse Pulse Resp BP BP 02/15/21 08:15 36.7 C 47 L 56 L 18 129/76 02/15/21 03:05 37.1 C 70 18 132/71 02/15/21 02:00 16 02/15/21 01:25 16 02/15/21 00:30 16 02/14/21 23:25 36.7 C 69 18 108/66 Pulse Ox 02/15/21 08:15 94 02/15/21 03:05 97 02/15/21 02:00 96 02/15/21 01:25 97 02/15/21 00:30 93 02/14/21 23:25 93 Lab Results 02/14/21 02/14/21 02/15/21 Range/Units 06:47 06:47 07:41 WBC 12.32 H 14.25 H (4.8-10.8) K/uL RBC 3.78 L 3.90 L (4.2-5.4) M/uL Hgb 9.9 L 9.9 L (12.0-16.0) g/dL Hct 30.9 L 31.6 L (37-47) % MCV 81.7 81.0 (80-100) fL MCH 26.2 25.4 (25-34) pg MCHC 32.0 31.3 L (32-36) g/dL RDW Std Deviation 44.9 45.1 (36.4-46.3) fL RDW Coeff of Chang 15.3 H 15.6 H (11.5-14.5) % Plt Count 330 332 (130-400) K/uL MPV 10.3 10.4 (7.4-10.4) fL Immature Gran % (Auto) 0.4 0.3 % Neut % (Auto) 59.2 70.2 % Lymph % (Auto) 30.2 21.5 % [place] % (Auto) 8.5 7.1 % Eos % (Auto) 1.5 0.8 % Baso % (Auto) 0.2 0.1 % Neut # (Auto) 7.30 H 10.01 H (1.4-6.5) K/uL Lymph # (Auto) 3.72 H 3.06 (1.2-3.4) K/uL [place] # (Auto) 1.05 H 1.01 H (0.11-0.59) K/uL Eos # (Auto) 0.18 0.11 (0-0.5) K/uL Baso # (Auto) 0.02 0.02 (0-0.2) K/uL Immature Gran # (Auto) 0.05 H 0.04 H (0.00-0.02) K/uL Sodium Potassium Chloride Carbon Dioxide Anion Gap BUN Creatinine Est Cr Clr Drug Dosing Est GFR ( Amer) Est GFR (Non-Af Amer) BUN/Creatinine Ratio Glucose Calcium Total Bilirubin AST ALT Alkaline Phosphatase Total Protein Albumin Globulin Albumin/Globulin Ratio Blood Type A Positive Antibody Screen NEGATIVE 02/15/21 Range/Units 07:41 WBC (4.8-10.8) K/uL RBC (4.2-5.4) M/uL Hgb (12.0-16.0) g/dL Hct (37-47) % MCV (80-100) fL MCH (25-34) pg MCHC (32-36) g/dL RDW Std Deviation (36.4-46.3) fL RDW Coeff of Chang (11.5-14.5) % Plt Count (130-400) K/uL MPV (7.4-10.4) fL Immature Gran % (Auto) % Neut % (Auto) % Lymph % (Auto) % [place] % (Auto) % Eos % (Auto) % Baso % (Auto) % Neut # (Auto) (1.4-6.5) K/uL Lymph # (Auto) (1.2-3.4) K/uL [place] # (Auto) (0.11-0.59) K/uL Eos # (Auto) (0-0.5) K/uL Baso # (Auto) (0-0.2) K/uL Immature Gran # (Auto) (0.00-0.02) K/uL Sodium Cancelled Potassium Cancelled Chloride Cancelled Carbon Dioxide Cancelled Anion Gap Cancelled BUN Cancelled Creatinine Cancelled Est Cr Clr Drug Dosing Cancelled Est GFR ( Amer) Cancelled Est GFR (Non-Af Amer) Cancelled BUN/Creatinine Ratio Cancelled Glucose Cancelled Calcium Cancelled Total Bilirubin Cancelled AST Cancelled ALT Cancelled Alkaline Phosphatase Cancelled Total Protein Cancelled Albumin Cancelled Globulin Cancelled Albumin/Globulin Ratio Cancelled Blood Type Antibody Screen PE: General: Alert, orientedx3, NAD CVS: S1S2 RRR Lungs; CTAB Abd: soft, NT, ND, BS+, fundus firm, below Umbilicus Incision/ Dressing: Clean, dry, intact Desires to delay to remote dressing after she would take pain meds. Perineum intact, Lochia rubra minimal Ext; NT, no edema AP: 30 yo s/p C Section, pod# 1, On Subutex, HCV, no h/o liver disorder VSS Afebrile doing well CMP, LFT pending ( unable to run blood work this morning) Continue routine postop care Encourage ambulation, PO intake All questions were answered Results & Data ([facility]) Vital Signs (Past 12 Hours) Vital Signs Temp Pulse Pulse Pulse Resp BP BP 02/15/21 08:15 36.7 C 47 L 56 L 18 129/76 02/15/21 03:05 37.1 C 70 18 132/71 02/15/21 02:00 16 02/15/21 01:25 16 02/15/21 00:30 16 02/14/21 23:25 36.7 C 69 18 108/66 Pulse Ox 02/15/21 08:15 94 02/15/21 03:05 97 02/15/21 02:00 96 02/15/21 01:25 97 02/15/21 00:30 93 02/14/21 23:25 93
[2021-02-15 11:44] LABS: Alanine Aminotransferase 14 U/L (12-78); Albumin Level 2.3 gm/dl (3.4-5.0); Aspartate Aminotransferase 20 U/L (15-37); BUN Creatinine Ratio 8.8 (10-20); Blood Urea Nitrogen 4 mg/dl (7-18); Calcium 8.8 mg/dl (8.5-10.1); Carbon Dioxide 24 mmol/L (21-32); Chloride 108 mmol/L (98-107); Est GFR (African American) > 150.0 ml/min; Est GFR (Non-African American) 138.8 ml/min; Glucose 103 mg/dl (70-99); Sodium 138 mmol/L (136-145)
[2021-02-15 11:47] LABS: Albumin Globulin Ratio 0.5 (0.9-2); Alkaline Phosphatase 192 U/L (45-117); Bilirubin,Total 0.3 mg/dl (0.2-1); Globulin 4.2 gm/dl (2.5-4.0); Total Protein 6.5 gm/dl (6.4-8.2)
[2021-02-15] MEDS: ACETAMINOPHEN 325 MG TAB PO PRN ×3 (12:11→21:15)
[2021-02-15] MEDS ORDERED: bisacodyL 5 MG TABEC PO SCH (20:00)
[2021-02-16] MEDS: HYDROmorphone HCL 2 MG TAB PO PRN ×2 (05:34→11:17)
[2021-02-16] MEDS: ACETAMINOPHEN 325 MG TAB PO PRN ×2 (06:10→11:16)
[2021-02-16] MEDS: IBUPROFEN 600 MG TAB PO PRN ×2 (06:11→11:17)
--- NOTE | 2021-02-16 07:58 | Obstetrical Progress Note ---
Date of Service February 16, 2021 Subjective Ambulation: ambulating normally Voiding: no voiding problems Passing Gas:: Yes Diet Tolerance:: regular diet Lochia:: Small Feeding Type:: bottle feeding abdomen soft and non-tender incision c/d/i no edema neg Musa's for d/c today f/u next week for staple removal Results & Data ([facility]) Vital Signs (Past 12 Hours) Vital Signs Temp Pulse Resp BP Pulse Ox 02/15/21 23:20 37.0 C 76 16 116/77 96 02/15/21 20:00 37.1 C 60 16 121/55 L 97 Laboratory Results 02/14/21 02/14/21 02/15/21 06:47 06:47 07:41 WBC 12.32 H 14.25 H RBC 3.78 L 3.90 L Hgb 9.9 L 9.9 L Hct 30.9 L 31.6 L MCV 81.7 81.0 MCH 26.2 25.4 MCHC 32.0 31.3 L RDW Std Deviation 44.9 45.1 RDW Coeff of Chang 15.3 H 15.6 H Plt Count 330 332 MPV 10.3 10.4 Immature Gran % (Auto) 0.4 0.3 Neut % (Auto) 59.2 70.2 Lymph % (Auto) 30.2 21.5 [place] % (Auto) 8.5 7.1 Eos % (Auto) 1.5 0.8 Baso % (Auto) 0.2 0.1 Neut # (Auto) 7.30 H 10.01 H Lymph # (Auto) 3.72 H 3.06 [place] # (Auto) 1.05 H 1.01 H Eos # (Auto) 0.18 0.11 Baso # (Auto) 0.02 0.02 Immature Gran # (Auto) 0.05 H 0.04 H Sodium Potassium Chloride Carbon Dioxide Anion Gap BUN Creatinine Est Cr Clr Drug Dosing Est GFR ( Amer) Est GFR (Non-Af Amer) BUN/Creatinine Ratio Glucose Calcium Total Bilirubin AST ALT Alkaline Phosphatase Total Protein Albumin Globulin Albumin/Globulin Ratio Blood Type A Positive Antibody Screen NEGATIVE 02/15/21 02/15/21 07:41 11:09 WBC RBC Hgb Hct MCV MCH MCHC RDW Std Deviation RDW Coeff of Chang Plt Count MPV Immature Gran % (Auto) Neut % (Auto) Lymph % (Auto) [place] % (Auto) Eos % (Auto) Baso % (Auto) Neut # (Auto) Lymph # (Auto) [place] # (Auto) Eos # (Auto) Baso # (Auto) Immature Gran # (Auto) Sodium Cancelled 138 Potassium Cancelled 4.0 Chloride Cancelled 108 H Carbon Dioxide Cancelled 24 Anion Gap Cancelled 5.0 BUN Cancelled 4 L Creatinine Cancelled 0.40 L Est Cr Clr Drug Dosing Cancelled 218.0 Est GFR ( Amer) Cancelled > 150.0 Est GFR (Non-Af Amer) Cancelled 138.8 BUN/Creatinine Ratio Cancelled 8.8 L Glucose Cancelled 103 H Calcium Cancelled 8.8 Total Bilirubin Cancelled 0.3 AST Cancelled 20 ALT Cancelled 14 Alkaline Phosphatase Cancelled 192 H Total Protein Cancelled 6.5 Albumin Cancelled 2.3 L Globulin Cancelled 4.2 H Albumin/Globulin Ratio Cancelled 0.5 L Blood Type Antibody Screen
[2021-02-16] MEDS: PRENATAL VITAMIN 1 TAB PO SCH (08:39)
[2021-02-16] MEDS: FERROUS SULFATE 325 MG TAB PO SCH (08:39)
[2021-02-16] MEDS: DOCUSATE SODIUM 100 MG CAP PO SCH (08:40)
[2021-02-16] MEDS: buprenorphine HCL 8 MG SUBL SL SCH (08:40)
[2021-02-16] MEDS: SIMETHICONE 80 MG CHEW PO SCH (08:44)
[2021-02-16] MEDS: NICOTINE 7 MG/24 HR TDSY TD SCH (08:45)
[2021-02-16 08:47] LABS: Hematocrit (blood only) 29.2 % (37-47); Hemoglobin 9.3 g/dL (12.0-16.0)
[2021-02-16] MEDS ORDERED: bisacodyL 10 MG SUPP PR PRN (09:38)
--- NOTE | 2021-02-21 04:48 | Discharge Summary (DS) ---
DATE OF DISCHARGE: 02/16/2021. DETAILS OF ADMISSION: The patient is a 30-year-old G3, P1-1-0-2 at 39 weeks and 4 days of gestation with prior history of two C-sections. She desired repeat C- section and excision of scarring from her midline skin incision. It was scheduled for 02/14. She delivered a viable male at 8:34 a.m. Apgars were 9/9. Her surgery was uncomplicated. On postoperative period, the patient was doing well, vital signs stable, afebrile. Pain was under control with medications. She was passing gas, bottle feeding her baby. Her postop H and H was 9.9/31.6. Meier was discontinued. She was ambulated and tolerated a regular diet. On postop day #2, the patient was doing well, vital signs stable, afebrile. Physical exam was unremarkable. Incision was clean, dry, and intact. She was tolerating regular diet and ambulating normally. She desired to be discharged home on postoperative day #2. Discharge instructions were given and prescriptions were written for pain. She is to be seen in the office in 10 days for incision check. Job ID: [id number] [facility]
== END 2021-02-16 11:22 | disposition home or self-care (01) | DRG 787 ==
LOC: 4S1 06:27 → MERGE 09:25 → EDSTATUS 09:25 → 4S2 12:15